=== PATIENT | female | born 1970 | race Caucasian/White ===

== ENCOUNTER 2025-07-15 10:15 | Emergency (ER) | payer OTHER, SELFPAY ==
--- NOTE | 2025-07-15 10:22 | ECG_ITS ---
Test Date: 2025-07-15 10:30:09 Measurements Intervals [place] Rate: 103 P: 69 SD: 155 QRS: 70 QRSD: 80 T: 73 QT: 330 QTc: 434 Interpretive Statements SINUS TACHYCARDIA NONSPECIFIC T-WAVE ABNORMALITY BORDERLINE ECG No previous ECG available for comparison Electronically Signed On 07-16-2025 09:12:38 [place] by Gaurav Arango M.D.
--- OUTSIDE RECORDS SUMMARY | 2025-07-15 10:22 | XMS_ITS | Encounter Summary ---
Author Organization [facility] Address [address] [place] [address] Phone Care Team Providers Care Safety Director Name Role Phone Steven Escudero MD Unavailable Felix Velasco [facility] Unavailable [phone] Steven Escudero MD Primary Care Provider [phone] Sebastián Anthony MD Primary Care Provider [phone] Reason for Visit * Reason Comments Medication Refill Encounter Details Date Type Department Care Team (Late st Contact Info) Description 02/12/2022 Refill [facility] Family Medicine [facility] [address] [place] [id number] Steven Escudero MD [address] [place] [address] Medication Refill Social History Tobacco Use Types Packs/Day Years Used Date Smoking Tobacco: Every Day Cigarettes 1.5 30 Smokeless Tobacco: Never Comments:used to smoke 2.5 p acks a day until ten years ago Alcohol Use Standard Drinks/Week Comments No 0 (1 standard drink = 0.6 oz pur e alcohol) PHQ-2 Answer Date Recorded Total Score - Questions 1-9 0 10/0 08/2020 Education Answer Date Recorded What is the highest level of school you have completed or the highest degree you have received? Associate degree: academic program 11/07/2020 Sexually Active Control Partners Comments Not Currently Comments No Sex and Gender Information Value Date Recorded Sex Assigned at Not on file Legal Sex Female 7:11 PM CDT Gender Identity Not on file Sexual Orientation Not on file Occupation Industry Job Start Date Job End Date Disabled Not on file Not on file Not on file COVID-19 Exposure Response Date Recorded In the last 10 days, have yo u been in contact with someone who was confirmed or suspected to have Coronavirus/COVID-19? No / Unsure 01/21/2022 2:27 PM CDT documented as of this encounter Miscellaneous Notes * Telephone Encounter - Miriam Richardson RN - 02/13/2022 11:52 AM CDT PRN medication requires review from provider Per nursing clinical judgement, provider to review and approve the medication(s) order(s) if appropriate. Requested Prescriptions Pending Prescriptions Disp Refills Ventolin HFA 108 (90 Base) MCG/ACT Aerosol Solution [Pharmacy Med Name: VENTOLIN HFA AEROSOL SOLN] 36 g 2 Sig: TAKE TWO (2) PUFFS BY INHALATION EVERY FOUR (4) HOURS NEEDED FOR WHEEZING. Short Acting Inhaled Beta-Agonists Protocol Passed - 02/12/2022 1:09 PM Passed - Visit with relevant provider in past 12 months or upcoming 90 days Recent Visits Date Type Provider Dept 12/03/21 Office Visit Steven Escudero MD [facility] 06/19/21 Office Visit Steven Escudero MD [facility] 05/17/21 Office Visit Steven Escudero MD [facility] 02/21/21 Office Visit Steven Escudero MD [facility] Showing recent visits within past 365 days and meeting all other requirements Future 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 Date Type Provider Dept 04/04/22 Appointment Steven Escudero MD [facility] Showing future appointments within next 90 days and meeting all other requirements documented in this encounter Plan of Treatment Not on file documented as of this encounter Visit Diagnoses Not on filedocumented in this encounter Additional Health Concerns Assessment Noted Time PHQ-9 Depression Total Score: 0 05/17/20 21 2:00 PM CDT documented as of this encounter Care Teams Safety Director Relationship Specialty Start Date End Date Steven Escudero MD PCP - General Family Medicine 11/19/21 04/15/22 Sebastián Anthony MD [address] [place] [address] PCP - General Internal Medicine 04/16/22 Steven Escudero MD Family Medicine 06/14/20 04/17/22 Felix Velasco, COLOR MAKER, DRAWER IN PLAIN LOOM [address] [address] Internal Medicine 06/19/20 documented as of this encounter
--- OUTSIDE RECORDS SUMMARY | 2025-07-15 10:22 | XMS_ITS | Encounter Summary ---
Author Organization [facility] Address [address] [place] [address] Phone Care Team Providers Care Geospatial Applications Developer Name Role Phone Steven Escudero MD Unavailable Steven Escudero MD Primary Care Provider [phone] Felix Velasco APRN, [facility] Unavailable [phone] Sebastián Anthony MD Primary Care Provider [phone] Steven Escudero MD Primary Care Provider [phone] Sebastián Anthony MD Primary Care Provider [phone] Reason for Visit * Reason Comments Medication Refill Encounter Details Date Type Department Care Team (Late st Contact Info) Description 10/09/[address] [facility] [address] [place] [address] Steven Escudero MD [address] [place] [address] Medication Refill Social History Tobacco Use Types Packs/Day Years Used Date Smoking Tobacco: Every Day Cigarettes 1 30 Smokeless Tobacco: Never Comments:used to smoke 2.5 p acks a day until ten years ago Alcohol Use Standard Drinks/Week Comments No 0 (1 standard drink = 0.6 oz pur e alcohol) PHQ-2 Answer Date Recorded Total Score - Questions 1-9 3 10/2019 Sexually Active Control Partners Comments Not Currently Comments No Sex and Gender Information Value Date Recorded Sex Assigned at Not on file Legal Sex Female 7:11 PM CDT Gender Identity Not on file Sexual Orientation Not on file Occupation Industry Job Start Date Job End Date Disabled Not on file Not on file Not on file documented as of this encounter Miscellaneous Notes * Telephone Encounter - Danita Mena RN - 10/10/2020 10:22 AM CST Medication failed the protocol, provider to review and approve the medication order if appropriate. Requested Prescriptions Pending Prescriptions Disp Refills risperiDONE (RISPERDAL) 0.5 MG Tablet [Pharmacy Med Name: RISPERIDONE 0.5 MG TAB 0.5 Tablet] 360 Tablet 0 Sig: TAKE ONE TABLET BY MOUTH 4 TIMES DAILY. Not Delegated - Psychiatry: Antipsychotics - Second Generation (Atypical) Failed - 10/10/2020 8:45 AM Failed - This refill cannot be delegated Failed - HBA1C in normal range and within 360 days No results found for: HGBA1C, GLYCO1 Passed - Valid encounter within last 6 months Past Office Visits Recent Outpatient Visits 1 month ago Mixed hyperlipidemia [facility] - Steven Jones MD 3 months ago Gastroesophageal reflux disease, unspecified whether esophagitis present [facility] - VinayakNo Luna, SALESPERSON HANDBAGS, EGG SMELLER 4 months ago Essential hypertension [facility] - Steven Jones MD 12 months ago Essential hypertension [facility] - Steven Jones MD 1 year ago Acute renal failure with tubular necrosis (HCC) [facility] Steven Faria MD 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 [facility] - Recent and Past Visits Recent Visits Date Type Provider Dept 08/27/20 [facility] [place] APN, EGG SMELLER [facility] 05/25/20 Office Visit Steven Escudero MD [facility] 10/13/19 Office Visit Steven Escudero MD [facility] 09/29/19 Office Visit Steven Escudero MD [facility] 08/25/19 Office Visit Steven Escudero MD [facility] 07/11/19 Office Visit Celso Prado APN, EGG SMELLER [facility] Showing recent visits within past 460 days with a meds authorizing provider and meeting all other requirements Future 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 No visits were found meeting these conditions. Showing future appointments within next 90 days with a meds authorizing provider and meeting all other requirements Passed - Last BP in normal range BP Readings from Last 1 Encounters: 06/19/20 132/74 Passed - WBC in normal range and within 360 days WBC Date Value Ref Range Status 08/20/2020 8.86 4.00 - 12.00 10(3)/mcL Final BUILDER documented in this encounter Plan of Treatment Not on file documented as of this encounter Visit Diagnoses Not on filedocumented in this encounter Additional Health Concerns Assessment Noted Time PHQ-9 Depression Total Score: 3 06/19/20 20 5:15 PM TOOL BUILDER documented as of this encounter Care Teams Geospatial Applications Developer Relationship Specialty Start Date End Date Stevne Escudero MD PCP - General Family Medicine 06/19/20 08/06/21 Sebastián Anthony MD [address] [place] [address] PCP - General Family Medicine 08/07/21 11/18/21 Steven Escudero MD PCP - General Family Medicine 11/19/21 04/15/22 Sebastián Anthony MD [address] [place] [address] PCP - General Internal Medicine 04/16/22 Steven Escudero MD Family Medicine 06/14/20 04/17/22 Felix Velasco, WARD CLERK, EGG SMELLER [address] [address] Internal Medicine 06/19/20 documented as of this encounter
--- OUTSIDE RECORDS SUMMARY | 2025-07-15 10:22 | XMS_ITS | Encounter Summary ---
Author Organization [facility] Address [address] [place] [address] Phone Care Team Providers Care Cna Instructor Name Role Phone Steven Escudero MD Unavailable Steven Escudero MD Primary Care Provider [phone] Felix Velasco APRN, [facility] Unavailable [phone] Sebastián Anthony MD Primary Care Provider [phone] Steven Escudero MD Primary Care Provider [phone] Sebastián Anthony MD Primary Care Provider [phone] Reason for Visit * Reason Comments Medication Refill Encounter Details Date Type Department Care Team (Late st Contact Info) Description 11/26/2020 Refill [facility] [address] [place] [address] Steven Escudero MD [address] [place] [address] Medication Refill Social History Tobacco Use Types Packs/Day Years Used Date Smoking Tobacco: Every Day Cigarettes 1 30 Smokeless Tobacco: Never Comments:used to smoke 2.5 p acks a day until ten years ago Alcohol Use Standard Drinks/Week Comments No 0 (1 standard drink = 0.6 oz pur e alcohol) PHQ-2 Answer Date Recorded Total Score - Questions 1-9 3 10/2019 Education Answer Date Recorded What is the [...] Exposure Response Date Recorded In the last month, have you been in contact with someone who was confirmed or suspected to have Coronavirus / COVID-19? No / Unsure 11/29/2020 5:49 PM CDT documented as of this encounter Miscellaneous Notes * Telephone Encounter - Danita Mena RN - 11/26/2020 4:23 PM CDT Medication failed the protocol, provider to review and approve the medication order if appropriate. Requested Prescriptions Pending Prescriptions Disp Refills Ventolin HFA 108 (90 Base) MCG/ACT Aerosol Solution [Pharmacy Med Name: VENTOLIN HFA 90 MCG [id number] (90 BAS Aerosol] 36 g 0 Sig: TAKE 2 PUFFS BY INHALATION EVERY 4 HOURS NEEDED FOR WHEEZING. Pulmonology: Beta Agonists - Albuterol & Levalbuterol Failed - 11/26/2020 3:22 PM Failed - May refill 2 inhalers, 0 refills one time since last office visit. May refill #50 nebulizer vials, 0 refills for albuterol or #48 vials, 0 refills for Xopenex one time since last office visit. Passed - Valid encounter within last 6 months Past Office Visits Recent Outpatient Visits 2 weeks ago Folliculitis [facility] - [facility] Medicine - [facility] Pr[facility], Celso Nolasco APN, BRITTANY 3 months ago Mixed hyperlipidemia [facility] - [facility] Medicine - Steven Jones MD 5 months ago Gastroesophageal reflux disease, unspecified whether esophagitis present [facility] - Family Medicine - No Marcelino APN, FORENSIC BALLISTICS EXPERT 6 months ago Essential hypertension [facility] - Steven Jones MD 1 year ago Essential hypertension [facility] - Steven Jones MD 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 Future 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 In 3 days Clinic, [facility] Moderna 1st Vaccine [facility], [facility] - Recent and Past Visits Recent Visits Date Type Provider Dept 11/07/20 Office Visit Celso Prado APN, FORENSIC BALLISTICS EXPERT [facility] 08/27/20 Telemedicine Steven Escudero MD [facility] 06/19/20 Office Visit No Spring APN, FORENSIC BALLISTICS EXPERT [facility] 05/25/20 Office Visit Steven Escudero MD [facility] 10/13/19 Office Visit Steven Escudero MD [facility] 09/29/19 Office Visit Steven Escudero MD [facility] 08/25/19 Office Visit Steven Escudero MD [facility] Showing recent visits within past 460 days with a meds authorizing provider and meeting all other requirements Future 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 No visits were found meeting these conditions. Showing future appointments within next 90 days with a meds authorizing provider and meeting all other requirements Passed - Last BP in normal range BP Readings from Last 1 Encounters: 11/13/20 128/85 documented in this encounter Plan of Treatment Not on file documented as of this encounter Visit Diagnoses Not on filedocumented in this encounter Additional Health Concerns Assessment Noted Time PHQ-9 Depression Total Score: 3 06/19/20 20 5:15 PM AGRICULTURAL LENDER documented as of this encounter Care Teams Cna Instructor Relationship Specialty Start Date End Date Steven Escudero MD PCP - General Family Medicine 06/19/20 08/06/21 Sebastián Anthony MD [address] [place] [address] PCP - General Family Medicine 08/07/21 11/18/21 Steven Escudero MD PCP - General Family Medicine 11/19/21 04/15/22 Sebastián Anthony MD [address] [place] [address] PCP - General Internal Medicine 04/16/22 Steven Escudero MD Family Medicine 06/14/20 04/17/22 Felix Velasco, CLERK ANALYST, FORENSIC BALLISTICS EXPERT [address] [place] [address] [place] [address] Internal Medicine 06/19/20 documented as of this encounter
--- OUTSIDE RECORDS SUMMARY | 2025-07-15 10:22 | XMS_ITS | Encounter Summary ---
Author Organization [facility] Address [address] [place] [address] Phone Care Team Providers Care Career Center Advisor Name Role Phone Robpippa Felix Esquivel APRN, LOGISTICS OPERATIONS MANAGER Unavailable [phone] Sebastián Anthony MD Primary Care Provider [phone] Reason for Visit * Reason Comments Medication Refill Encounter Details Date Type Department Care Team (Late st Contact Info) Description 10/16/2022 Refill [facility] [address] [place] [id number] Steven Escudero MD [address] [place] [address] Medication Refill Social History Tobacco Use Types [...] suspected to have Coronavirus/COVID-19? No / Unsure 09/27/2022 10:20 AM LEAD SYSTEMS DEVELOPER documented as of this encounter Plan of Treatment Not on file documented as of this encounter Visit Diagnoses Not on filedocumented in this encounter Additional Health Concerns Assessment Noted Time PHQ-9 Depression Total Score: 0 05/17/20 21 2:00 PM CDT documented as of this encounter Care Teams Career Center Advisor Relationship Specialty Start Date End Date Sebastián Anthony MD [address] [place] [address] PCP - General Internal Medicine 04/16/22 Felix Velasco, HEAD GRINDER, LOGISTICS OPERATIONS MANAGER [address] [place] [address] Internal Medicine 06/19/20 documented as of this encounter
--- OUTSIDE RECORDS SUMMARY | 2025-07-15 10:22 | XMS_ITS | Encounter Summary ---
Author Organization [facility] Address [address] [place] [address] Phone Care Team Providers Care Corporate Strategy Intern Name Role Phone Steven Escudero MD Unavailable Felix Velasco APRN, [facility] Unavailable Sebastián Anthony MD Primary Care Provider [phone] Steven Escudero MD Primary Care Provider [phone] Sebastián Anthony MD Primary Care Provider [phone] Reason for Visit * Reason Comments Medication Refill Encounter Details Date Type Department Care Team (Late st Contact Info) Description 08/20/2021 Refill [facility] [address] [place] [address] Steven Escudero MD [address] [place] [address] Medication Refill Social History Tobacco Use Types Packs/Day Years Used Date Smoking Tobacco: Every Day Cigarettes 1 30 Smokeless Tobacco: Never Comments:used to smoke 2.5 p acks a day until ten years ago Alcohol Use Standard Drinks/Week Comments No 0 (1 standard drink = 0.6 oz pur e alcohol) PHQ-2 Answer Date Recorded Total Score - Questions 1-9 0 08/2020 Education Answer Date Recorded What is [...] Telephone Encounter - Miriam Richardson RN - 08/21/2021 7:47 AM CST PCP is Sebastián Anthony NOMY SUPERVISOR documented in this encounter Plan of Treatment Not on file documented as of this encounter Visit Diagnoses Not on filedocumented in this encounter Additional Health Concerns Assessment Noted Time PHQ-9 Depression Total Score: 0 05/17/20 2:00 PM CDT documented as of this encounter Care Teams Corporate Strategy Intern Relationship Specialty Start Date End Date Sebastián Anthony MD [address] [place] [address] PCP - General Family Medicine 08/07/21 11/18/21 Steven Escudero MD PCP - General Family Medicine 11/19/21 04/15/22 Sebastián Anthony MD [address] [place] [address] PCP - General Internal Medicine 04/16/22 Steven Escudero MD Family Medicine 06/14/20 04/17/22 Felix Velasco, PROFESSIONAL HEALTHCARE REPRESENTATIVE, CERTIFIED PEDORTHOTIST [address] [place] [address] Internal Medicine 06/19/20 documented as of this encounter
--- OUTSIDE RECORDS SUMMARY | 2025-07-15 10:22 | XMS_ITS | Encounter Summary ---
Author Organization [facility] Address [address] [place] [address] Phone Care Team Providers Care Olericulture Professor Name Role Phone Steven Escudero MD Unavailable Steven Escudero MD Primary Care Provider [phone] Felix Velasco APRN, [facility] Unavailable [phone] Sebastián Anthony MD Primary Care Provider [phone] Steven Escudero MD Primary Care Provider [phone] Sebastián Anthony MD Primary Care Provider [phone] Reason for Visit * Reason Onset Date Comments Medication Refill 08/07/2020 diazepam, oxyc odone Encounter Details Date Type Department Care Team (Late st Contact Info) Description 08/07/2020 Refill [facility] - Family [facility] [address] [place] [id number] Steven Escudero MD [address] [place] [address] Medication Refill (diazepam, oxycodone ) Social History Tobacco Use Types Packs/Day Years [...] Telephone Encounter - Miriam Richardson RN - 08/07/2020 4:10 PM CST PACO 06/19/20 fol up 08/27/20 last fill 07/14/20 next fill 08/13/20 Medication failed the protocol, provider to review and approve the medication order if appropriate. Requested Prescriptions Pending Prescriptions Disp Refills diazePAM (VALIUM) 5 MG Tablet 120 Tab 0 Sig: Take 1 Tab by mouth every 6 hours as needed for Anxiety or Muscle spasms. FIRST FILL DATE 05/18/2020 need appt or no more refills Not Delegated - Psychiatry: Anxiolytics/Hypnotics Failed - 08/07/2020 4:09 PM Failed - This refill cannot be delegated Passed - Valid encounter within last 6 months Past Office Visits Recent Outpatient Visits 1 month ago Gastroesophageal reflux disease, unspecified whether esophagitis present [facility], SENIOR MANAGER [facility] 2 months ago Essential [facility] - Steven Jones MD 9 months ago Essential hypertension [facility] - Steven Jones MD 10 months ago Acute renal failure with tubular necrosis (HCC) [facility] - Steven Jones MD 11 months ago Essential hypertension [facility] - Steven Jones MD 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 Future 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 In 2 weeks Steven Escudero MD [facility] CLERICAL ASSISTANT - Recent and Past Visits Recent Visits Date Type Provider Dept 06/19/20 Office Visit No Spring APN, [facility] 05/25/20 Office Visit Steven Escudero MD [facility] 10/13/19 Office Visit Steven Escudero MD [facility] 09/29/19 Office Visit Steven Escudero MD [facility] 08/25/19 Office Visit Steven Escudero MD [facility] 07/11/19 Office Visit Celso Prado APN, SENIOR MANAGER [facility] Vinayak 06/01/19 Office Visit Steven Escudero MD [facility] Showing recent visits within past 460 days with a meds authorizing provider and meeting all other requirements Future 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 Date Type Provider Dept 08/27/20 Appointment Steven Escudero MD [facility] Showing future appointments within next 90 days with a meds authorizing provider and meeting all other requirements oxyCODONE-Acetaminophen (PERCOCET) 10-325 MG Tablet 180 Tab 0 Sig: Take 1 Tab by mouth every 4 hours as needed for Moderate or more severe pain. Needs appt or nofurther refills. Not Delegated - Analgesics: Opioid Agonist Combinations Failed - 08/07/2020 4:09 PM Failed - This refill cannot be delegated Passed - Valid encounter within last 6 months Past Office Visits Recent Outpatient Visits 1 month ago Gastroesophageal reflux disease, unspecified whether esophagitis present [facility], SENIOR MANAGER [facility] 2 months ago Essential hypertension [facility] Steven Jones MD 9 months ago Essential hypertension [facility] Steven Jones MD 10 months ago Acute renal failure with tubular necrosis (HCC) [facility] Steven Jones MD 11 months ago Essential hypertension [facility] Steven Jones MD 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 Future 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 In 2 weeks Steven Escudero MD [facility] Vinayak, [facility] LIBRARY CLERICAL ASSISTANT - Recent and Past Visits Recent Visits Date Type Provider Dept 06/19/20 Office Visit No Spring APN, SENIOR MANAGER [facility] 05/25/20 Office Visit Steven Escudero, MD [facility] 10/13/19 Office Visit Steven Escudero, MD [facility] 09/29/19 Office Visit Steven Escudero, MD [facility] 08/25/19 Office Visit Steven Escudero, MD [facility] 07/11/19 Office Visit Celso Prado APN, SENIOR MANAGER [facility] 06/01/19 Office Visit Steven Escudero, MD [facility] Showing recent visits within past 460 days with a meds authorizing provider and meeting all other requirements Future 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 Date Type Provider Dept 08/27/20 Appointment Steven Escudero MD [facility] Showing future appointments within next 90 days with a meds authorizing provider and meeting all other requirements DREN'S INSTITUTION ATTENDANT * Telephone Encounter - Danielle Rivera - 08/07/2020 12:39 PM CST Received: []FAX [x]TELEPHONE CALL []MYCHART from: []PHARMACY [x]PATIENT/OTHER regarding medication management. Medication name and dose: Requested Prescriptions Pending Prescriptions Disp Refills ??? diazePAM (VALIUM) 5 MG Tablet 120 Tab 0 Sig: Take 1 Tab by mouth every 6 hours as needed for Anxiety or Muscle spasms. FIRST FILL DATE 05/18/2020 need appt or no more refills ??? oxyCODONE-Acetaminophen (PERCOCET) 10-325 MG Tablet 180 Tab 0 Sig: Take 1 Tab by mouth every 4 hours as needed for Moderate or more severe pain. Needs appt or nofurther refills. Quantity: (30 day, 90 day, 3 monthly scripts) 30 day Pharmacy preference for this medication: [facility] [place] Outcome: [x]Medication pended, routed to surescripts []Medication refused []Informed caller of refills at pharmacy []Additional message to medication management RN []Verbal authorization for written order to pharmacy []Additional message to provider []Verified medication with pharmacy magdy Medication Management DREN'S INSTITUTION ATTENDANT documented in this encounter Plan of Treatment Not on file documented as of this encounter Visit Diagnoses Diagnosis Chronic bilateral low back pain with sciatica, sciatica laterality unspecified Chronic prescription opiate use documented in this encounter Additional Health Concerns Assessment Noted Time PHQ-9 Depression Total Score: 3 06/19/20 20 5:15 PM CHILDREN'S INSTITUTION ATTENDANT documented as of this encounter Care Teams Olericulture Professor Relationship Specialty Start Date End Date Steven Escudero MD PCP - General Family Medicine 06/19/20 08/06/21 Sebastián Anthony MD [address] [place] [address] PCP - General Family Medicine 08/07/21 11/18/21 Steven Escudero MD PCP - General Family Medicine 11/19/21 04/15/22 Sebastián Anthony MD [address] [place] [address] PCP - General Internal Medicine 04/16/22 Steven Escudero MD Family Medicine 06/14/20 04/17/22 Felix Velasco, LABORATORY MACHINIST, SENIOR MANAGER [facility] [address] [place] [address] [place] [address] Internal Medicine 06/19/20 documented as of this encounter
--- OUTSIDE RECORDS SUMMARY | 2025-07-15 10:22 | XMS_ITS | Encounter Summary ---
Author Organization [facility] Address [address] [place] [address] Phone Care Team Providers Care Bundler Name Role Phone Steven Escudero MD Unavailable Steven Escudero MD Primary Care Provider [phone] Felix Velasco APRN, [facility] Unavailable [phone] Sebastián Anthony MD Primary Care Provider [phone] Steven Escudero MD Primary Care Provider [phone] Sebastián Anthony MD Primary Care Provider [phone] Reason for Visit * Reason Comments Medication Refill Encounter Details Date Type Department Care Team (Late st Contact Info) Description 01/07/2021 Refill [facility] [address] [place] [address] Steven Escudero MD [address] [place] [address] Medication Refill Social History Tobacco Use Types [...] have Coronavirus / COVID-19? No / Unsure 01/09/2021 2:13 PM CDT documented as of this encounter Miscellaneous Notes * Telephone Encounter - Miriam Richardson RN - 01/08/2021 9:30 AM CDT Medication failed the protocol, provider to review and approve the medication order if appropriate. Requested Prescriptions Pending Prescriptions Disp Refills clopidogrel (PLAVIX) 75 MG Tablet [Pharmacy Med Name: CLOPIDOGREL 75 MG TABLET 75 Tablet] 90 Tablet3 Sig: TAKE 1 TAB BY MOUTH DAILY. Plavix Protocol Passed - 01/07/2021 1:34 PM Passed - CBC on record in the past year WBC Date Value Ref Range Status 08/20/2020 8.86 4.00 - 12.00 10(3)/mcL Final WBC ESTERASE Date Value Ref Range Status 2020 Negative Negative Final RBC Date Value Ref Range Status 08/20/2020 4.54 3.80 - 5.30 10(6)/mcL Final HEMATOCRIT (HCT) Date Value Ref Range Status 08/20/2020 45.2 36.0 - 47.0 % Final HEMOGLOBIN (HGB) Date Value Ref Range Status 08/20/2020 14.4 12.0 - 15.8 g/dL Final MCV Date Value Ref Range Status 08/20/2020 99.6 (H) 82.0 - 96.0 fL Final MCH Date Value Ref Range Status 08/20/2020 31.7 26.0 - 34.0 pg Final MCHC Date Value Ref Range Status 08/20/2020 31.9 31.0 - 36.0 g/dL Final Passed - Serum creatinine on record in the past year CREATININE, BLOOD Date Value Ref Range Status 08/20/2020 0.87 0.60 - 1.10 mg/dL Final Passed - Visit with relevant provider in past 12 months or upcoming 90 days Recent Visits Date Type Provider Dept 11/07/20 Office Visit Celso Prado APN, BRITTANY [facility] 08/27/20 Telemedicine Steven Escudero MD [facility] 06/19/20 Office Visit No Spring APN, CNP [facility] Vin[facility] 05/25/20 Office Visit Steven Escudero MD [facility] Showing recent visits within past 365 days and meeting all other requirements Future 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 No visits were found meeting these conditions. Showing future appointments within next 90 days and meeting all other requirements Passed - No interacting PPI on medication list or not on PPI Ventolin HFA 108 (90 Base) MCG/ACT Aerosol Solution [Pharmacy Med Name: VENTOLIN HFA 90 MCG [id number] (90 BAS Aerosol] 36 g 0 Sig: TAKE 2 PUFFS BY INHALATION EVERY 4 HOURS NEEDED FOR WHEEZING. [facility] Pulmonology: Beta Agonists - Albuterol & Levalbuterol Failed - 01/07/2021 1:34 PM Failed - May refill 2 inhalers, 0 refills one time since last office visit. May refill #50 nebulizer vials, 0 refills for albuterol or #48 vials, 0 refills for Xopenex one time since last office visit. Passed - Valid encounter within last 6 months Past Office Visits Recent Outpatient Visits 2 months ago Folliculitis [facility] - Celso May APN, CNP 4 months ago Mixed hyperlipidemia [facility] - Steven Jones MD 6 months ago Gastroesophageal reflux disease, unspecified whether esophagitis present [facility] - No Marcelino APN, CNP 7 months ago [facility] Jones [facility] 1 year ago Essential hypertension [facility] - Steven Jones MD 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 ACT 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 - Recent and Past Visits Recent Visits Date Type Provider Dept 11/07/20 Office Visit Celso Prado APN, BRITT[facility] 08/27/20 Telemedicine Steven Escudero MD [facility] 06/19/20 Office Visit No Spring APN, [facility] [place] 05/25/20 Office Visit Steven Escudero MD [facility] 10/13/19 Office Visit Steven Escudero MD [facility] Showing recent visits within past 460 days with a meds authorizing provider and meeting all other requirements Future 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 No visits were found meeting these conditions. Showing future appointments within next 90 days with a meds authorizing provider and meeting all other requirements Passed - Last BP in normal range BP Readings from Last 1 Encounters: 11/13/20 128/85 risperiDONE (RISPERDAL) 0.5 MG Tablet [Pharmacy Med Name: RISPERIDONE 0.5 MG TAB 0.5 Tablet] 360 Tablet 1 Sig: TAKE ONE TABLET BY MOUTH 4 TIMES DAILY. [facility] Not Delegated - Psychiatry: Antipsychotics - Second Generation (Atypical) Failed - 01/07/2021 1:34 PM Failed - This refill cannot be delegated Failed - HBA1C in normal range and within 360 days No results found for: HGBA1C, GLYCO1 Passed - Valid encounter within last 6 months Past Office Visits Recent Outpatient Visits 2 months ago Folliculitis [facility] - Celso May APN, CNP 4 months ago Mixed hyperlipidemia [facility] - Steven Jones MD 6 months ago Gastroesophageal reflux disease, unspecified whether esophagitis present [facility] - No Marcelino APN, CNP 7 months ago Essential hypertension [facility] - Steven Jones MD 1 year ago Essential hypertension [facility] - Steven Jones MD 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 SAT ACT INSTRUCTOR - Recent and Past Visits Recent Visits Date Type Provider Dept 11/07/20 Office Visit Celso Prado APN, BRITTANY [facility] 08/27/20 Telemedicine Steven Escudero MD [facility] 06/19/20 Office Visit No Spring APN, BRITTANY [facility] 05/25/20 Office Visit Steven Escudero MD [facility] 10/13/19 Office Visit Steven Escudero MD [facility] Showing recent visits within past 460 days with a meds authorizing provider and meeting all other requirements Future 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 No visits were found meeting these conditions. Showing future appointments within next 90 days with a meds authorizing provider and meeting all other requirements Passed - Last BP in normal range BP Readings from Last 1 Encounters: 11/13/20 128/85 Passed - WBC in normal range and within 360 days WBC Date Value Ref Range Status 08/20/2020 8.86 4.00 - 12.00 10(3)/mcL Final carvedilol (COREG) 6.25 MG Tablet [Pharmacy Med Name: CARVEDILOL 6.25 MG TAB 6.25 Tablet] 180 Tablet 3 Sig: TAKE 1 TABLET BY MOUTH 2 TIMES DAILY. Beta-Blockers Protocol Passed - 01/07/2021 1:34 PM Passed - BP on record in the past year Clinician-entered: BP Readings from Last 3 Encounters: 11/13/20 128/85 11/07/20 124/60 06/19/20 132/74 Patient-entered: No data recorded Passed - Visit with relevant provider in past 12 months or upcoming 90 days Recent Visits Date Type Provider Dept 11/07/20 Office Visit Celso Prado APN, BRITTANY [facility] 08/27/20 Telemedicine Steven Escudero MD [facility] 06/19/20 Office Visit No Spring APN, CNP [facility] 05/25/20 Office Visit Steven Escudero MD [facility] Showing recent visits within past 365 days and meeting all other requirements Future 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 No visits were found meeting these conditions. Showing future appointments within next 90 days and meeting all other requirements amLODIPine (NORVASC) 10 MG Tablet [Pharmacy Med Name: AMLODIPINE BESYLATE 10 MG T 10 Tablet] 90 Tablet 3 Sig: TAKE 1 TABLET BY MOUTH DAILY. Calcium-Channel Blockers Protocol Passed - 01/07/2021 1:34 PM Passed - BP on record in the past year Clinician-entered: BP Readings from Last 3 Encounters: 11/13/20 128/85 11/07/20 124/60 06/19/20 132/74 Patient-entered: No data recorded Passed - Visit with relevant provider in past 12 months or upcoming 90 days Recent Visits Date Type Provider Dept 11/07/20 Office Visit Celso Prado APN, MANAGER OF CARE [facility] 08/27/20 Telemedicine Steven Escudero MD [facility] 06/19/20 Office Visit No Spring APN, MANAGER [facility] [place] 05/25/20 [facility] Show[facility] recent visits within past 365 days [...] Time PHQ-9 Depression Total Score: 3 06/19/20 5:15 PM BROADCAST PRODUCER documented as of this encounter Care Teams Bundler Relationship Specialty Start Date End Date Steven Escudero MD PCP - General Family Medicine 06/19/20 08/06/21 Sebastián [place] [address] PCP - General Family Medicine 08/07/21 11/18/21 Steven Escudero MD PCP - General Family Medicine 11/19/21 04/15/22 Sebastián Anthony MD [address] [place] [address] PCP - General Internal Medicine 04/16/22 Steven Escudero MD Family Medicine 06/14/20 04/17/22 Felix Velasco, MANUSCRIPTS ARCHIVIST, MANAGER OF CARE [address] [facility] [address] [place] [address] Internal Medicine 06/19/20 documented as of this encounter
--- OUTSIDE RECORDS SUMMARY | 2025-07-15 10:22 | XMS_ITS | Encounter Summary ---
Author Organization [facility] Address [address] [place] [address] Phone Care Team Providers Care Student Truck Driver Name Role Phone Steven Escudero MD Unavailable Steven Escudero MD Primary Care Provider [phone] Felix Velasco APRN, [facility] Unavailable Sebastián Anthony MD Primary Care Provider [phone] Steven Escudero MD Primary Care Provider [phone] Sebastián Anthony MD Primary Care Provider Reason for Visit * Reason Comments Medication Refill Encounter Details Date Type Department Care Team (Late st Contact Info) Description 09/11/2020 Refill [facility] [address] [place] [address] Steven Escudero MD [address] [place] [address] Medication Refill Social History Tobacco Use Types [...] have Coronavirus / COVID-19? No / Unsure 08/20/2020 9:08 AM PHYSICAL THERAPY SUPERVISOR documented as of this encounter Miscellaneous Notes * Telephone Encounter - Miriam Richardson RN - 09/12/2020 10:29 AM CST duplicate ICAL THERAPY SUPERVISOR documented in this encounter Plan of Treatment Not on file documented as of this encounter Visit Diagnoses Diagnosis Chronic bilateral low back pain with sciatica, sciatica laterality unspecified documented in this encounter Additional Health Concerns Assessment Noted Time PHQ-9 Depression Total Score: 3 06/19/20 20 5:15 PM PHYSICAL THERAPY SUPERVISOR documented as of this encounter Care Teams Student Truck Driver Relationship Specialty Start Date End Date Steven Escudero MD PCP - General Family Medicine 06/19/20 08/06/21 Sebast[place]án [place] [address] PCP - General Family Medicine 08/07/21 11/18/21 Steven Escudero MD PCP - General Family Medicine 11/19/21 04/15/22 Sebastián Anthony MD [address] [place] [address] PCP - General Internal Medicine 04/16/22 Steven Escudero MD Family Medicine 06/14/20 04/17/22 Felix Velasco, TELEVISION ANNOUNCER, RELATIONS MGR [address] [facility] [place] [place] [address] Internal Medicine 06/19/20 documented as of this encounter
--- OUTSIDE RECORDS SUMMARY | 2025-07-15 10:22 | XMS_ITS | Encounter Summary ---
Author Organization [facility] Address [address] [place] [address] Phone Care Team Providers Care Director Of Annual Giving Name Role Phone Steven Escudero MD Unavailable Steven Escudero MD Primary Care Provider [phone] Felix Velasco APRN, [facility] Unavailable [phone] Sebastián Anthony MD Primary Care Provider [phone] Steven Escudero MD Primary Care Provider [phone] Sebastián Anthony MD Primary Care Provider [phone] Reason for Visit * Reason Comments Medication Refill Encounter Details Date Type Department Care Team (Late st Contact Info) Description 09/27/2020 Refill [facility] [address] [place] [address] Steven Escudero MD [address] [place] [address] Medication Refill Social History Tobacco Use Types [...] encounter Miscellaneous Notes * Telephone Encounter - Irma Levin RN - 09/27/2020 11:55 AM CST Sent to PCP NEY SUPERVISOR BRICK * Telephone Encounter - Irma Levin RN - 09/27/2020 11:55 AM CST Medication failed the protocol, provider to review and approve the medication order if appropriate. Last OV 08/27/20, F/U None, Last Rx 08/07/20 Irma KIMBALL Requested Prescriptions Pending Prescriptions Disp Refills Ventolin HFA 108 (90 Base) MCG/ACT Aerosol Solution [Pharmacy Med Name: VENTOLIN HFA 90 MCG [id number] (90 BAS Aerosol] 36 g 0 Sig: TAKE 2 PUFFS BY INHALATION EVERY 4 HOURS NEEDED FOR WHEEZING. Pulmonology: Beta Agonists - Albuterol & Levalbuterol Failed - 09/27/2020 11:37 AM Failed - May refill 2 inhalers, 0 refills one time since last office visit. May refill #50 nebulizer vials, 0 refills for albuterol or #48 vials, 0 refills for Xopenex one time since last office visit. Passed - Valid encounter within last 6 months Past Office Visits Recent Outpatient Visits 1 month ago Mixed hyperlipidemia [facility] - Steven Jones MD 3 months ago Gastroesophageal reflux disease, unspecified whether esophagitis present [facility] - No Marcelino APN, BLACK TOP SPREADER MACHINE OPERATOR 4 months ago Essential hypertension [facility] - Steven Jones MD 11 months ago Essential hypertension [facility] - Steven Jones MD 12 months ago Acute renal failure with tubular necrosis (HCC) [facility] - Steven Jones MD 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 - Recent and Past Visits Recent Visits Date Type Provider Dept 08/27/20 Telemedicine Steven Escudero MD [facility] 06/19/20 Office Visit No Spring APN, BLACK TOP SPREADER MACHINE OPERATOR [facility] 05/25/20 Office Visit Steven Escudero MD [facility] 10/13/19 Office Visit Steven Escudero MD [facility] 09/29/19 Office Visit Steven Escudero MD [facility] 08/25/19 Office Visit Steven Escudero MD [facility] 07/11/19 Office Visit Celso Prado APN, BLACK TOP SPREADER MACHINE OPERATOR [facility] Showing recent visits within past 460 days with a meds authorizing provider and meeting all other requirements Future 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 No visits were found meeting these conditions. Showing future appointments within next 90 days with a meds authorizing provider and meeting all other requirements Passed - Last BP in normal range BP Readings from Last 1 Encounters: 06/19/20 132/74 NEY SUPERVISOR BRICK documented in this encounter Plan of Treatment Not on file documented as of this encounter Visit Diagnoses Not on filedocumented in this encounter Additional Health Concerns Assessment Noted Time PHQ-9 Depression Total Score: 3 06/19/20 20 5:15 PM CHIMNEY SUPERVISOR BRICK documented as of this encounter Care Teams Director Of Annual Giving Relationship Specialty Start Date End Date Steven Escudero MD PCP - General Family Medicine 06/19/20 08/06/21 Sebast[place]án [place] [address] PCP - General Family Medicine 08/07/21 11/18/21 Steven Escudero MD PCP - General Family Medicine 11/19/21 04/15/22 Sebastián Anthony MD [address] [place] [address] PCP - General Internal Medicine 04/16/22 Steven Escudero MD Family Medicine 06/14/20 04/17/22 Felix Velasco, EXECUTIVE SEARCH CONSULTANT, BLACK TOP SPREADER MACHINE OPERATOR [address] [place] [address] [place] [address] Internal Medicine 06/19/20 documented as of this encounter
--- OUTSIDE RECORDS SUMMARY | 2025-07-15 10:22 | XMS_ITS | Encounter Summary ---
Author Organization [facility] Address [address] [place] [address] Phone Care Team Providers Care Plant Taxonomist Name Role Phone Steven Escudero MD Unavailable Steven Escudero MD Primary Care Provider [phone] Felix Velasco APRN, [facility] Unavailable [phone] Sebastián Anthony MD Primary Care Provider [phone] Steven Escudero MD Primary Care Provider [phone] Sebastián Anthony MD Primary Care Provider [phone] Reason for Visit * Reason Comments Medication Refill Encounter Details Date Type Department Care Team (Late st Contact Info) Description 10/20/2020 Refill [facility] [address] [place] [address] Steven Escudero MD [address] [place] [address] Medication Refill Social History Tobacco Use Types [...] Telephone Encounter - Miriam Richardson RN - 10/22/2020 11:15 AM CST Medication failed the protocol, provider to review and approve the medication order if appropriate. Requested Prescriptions Pending Prescriptions Disp Refills busPIRone HCl (BUSPAR) 30 MG Tablet [Pharmacy Med Name: BUSPIRONE HCL 30 MG TABS 30 Tablet] 90 Tablet 1 Sig: TAKE 1/2 TABLET BY MOUTH 2 TIMES DAILY. Not Delegated - Psychiatry: Anxiolytics/Hypnotics Failed - 10/20/2020 2:12 PM Failed - This refill cannot be delegated Passed - Valid encounter within last 6 months Past Office Visits Recent Outpatient Visits 1 month ago Mixed hyperlipidemia [facility] Medical [facility] Family [facility] - Steven Jones MD 4 months ago Gastroesophageal reflux disease, unspecified whether esophagitis present [facility] - McdonaldNo Luna APN, PLANT TAXONOMIST 5 months ago Essential hypertension [facility] - Steven Jones MD 1 year ago Essential hypertension [facility] - Steven Jones MD 1 year ago Acute renal failure with tubular necrosis (HCC) [facility] Steven Faria MD 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 - 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 and Past Visits Recent Visits Date Type Provider Dept 08/27/20 Telemedicine Steven Escudero MD [facility] Kev 06/19/20 Office Visit No Spring APN, PLANT TAXONOMIST [facility] 05/25/20 Office Visit Steven Escudero MD [facility] 10/13/19 Office Visit Steven Escudero MD [facility] 09/29/19 Office Visit Steven Escudero MD [facility] 08/25/19 Office Visit Steven Escudero MD [facility] Showing recent visits within past 460 days with a meds authorizing provider and meeting all other requirements Future 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 No visits were found meeting these conditions. Showing future appointments within next 90 days with a meds authorizing provider and meeting all other requirements VIORAL ASSISTANT documented in this encounter Plan of Treatment Not on file documented as of this encounter Visit Diagnoses Not on filedocumented in this encounter Additional Health Concerns Assessment Noted Time PHQ-9 Depression Total Score: 3 06/19/20 5:15 PM BEHAVIORAL ASSISTANT documented as of this encounter Care Teams Plant Taxonomist Relationship Specialty Start Date End Date Steven Escudero MD PCP - General Family Medicine 06/19/20 08/06/21 Sebastián Anthony MD [address] [place] [address] PCP - General Family Medicine 08/07/21 11/18/21 Steven Escudero MD PCP - General Family Medicine 11/19/21 04/15/22 Sebastián Anthony MD [address] [place] [address] PCP - General Internal Medicine 04/16/22 Steven Escudero MD Family Medicine 06/14/20 04/17/22 Felix Velasco APRN, PLANT TAXONOMIST [address] [facility] [address] [place] [address] Internal Medicine 06/19/20 documented as of this encounter
--- OUTSIDE RECORDS SUMMARY | 2025-07-15 10:22 | XMS_ITS | Encounter Summary ---
Author Organization [facility] Address [address] [place] [address] Phone Care Team Providers Care Microsoft Developer Name Role Phone Steven Escudero MD Unavailable Felix Velasco [facility] Unavailable [phone] Steven Escudero MD Primary Care Provider [phone] Sebastián Anthony MD Primary Care Provider [phone] Reason for Visit * Reason Comments Medication Refill Encounter Details Date Type Department Care Team (Late st Contact Info) Description 11/28/2021 Refill [facility] [address] [place] [id number] Steven Escudero MD [address] [place] [address] Medication Refill Social History Tobacco Use Types [...] suspected to have Coronavirus/COVID-19? No / Unsure 11/30/2021 3:24 PM CDT documented as of this encounter Functional Status documented as of this encounter Mental Status * Question Answer Entry Date Author BP 108/68 11/30/2021 3:35 PM CDT Lora Mitchell, RTR Temp 97.9 11/30/2021 3:35 PM CDT Lora Mitchell, RTR Pulse 76 11/30/2021 3:35 PM CDT Lora Mitchell, RTR SpO2 98 11/30/2021 3:35 PM CDT Lora Mitchell, RTR documented in this encounter Miscellaneous Notes * Telephone Encounter - Miriam Richardson RN - 11/28/2021 3:11 PM CDT Medication failed the protocol, provider to review and approve the medication order if appropriate. Requested Prescriptions Pending Prescriptions Disp Refills Icosapent Ethyl (Vascepa) 1 g Capsule 360 Capsule 3 Sig: Take 2 Capsules by mouth 2 times daily. Not Delegated - Off Protocol Failed - 11/28/2021 1:18 PM Failed - This refill cannot be delegated Passed - Visit with relevant provider in past 12 months or upcoming 90 days Recent Visits Date Type Provider Dept 06/19/21 Office Visit Steven Escudero MD [facility] 05/17/21 Office Visit Steven Escudero MD [facility] 02/21/21 Office Visit Steven Escudero MD [facility] 01/15/21 Office Visit Steven Escudero MD [facility] Showing recent visits within past 365 days and meeting all other requirements Future 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 Date Type Provider Dept 12/03/21 Appointment Steven Escudero MD [facility] Showing future appointments within next 90 days and meeting all other requirements carvedilol (COREG) 6.25 MG Tablet [Pharmacy Med Name: CARVEDILOL 6.25MG TABLET] 180 Tablet 3 Sig: TAKE ONE (1) TABLET BY MOUTH TWO (2) TIMES DAILY. Beta-Blockers Protocol Passed - 11/28/2021 1:19 PM Passed - BP on record in the past year Clinician-entered: BP Readings from Last 3 Encounters: 11/14/21 126/82 09/01/21 128/82 06/19/21 138/84 Patient-entered: No data recorded Passed - Visit with relevant provider in past 12 months or upcoming 90 days Recent Visits Date Type Provider Dept 06/19/21 Office Visit Steven Escudero MD [facility] 05/17/21 Office Visit Steven Escudero MD [facility] 02/21/21 Office Visit Steven Escudero MD [facility] 01/15/21 Office Visit Steven Escudero MD [facility] Showing recent visits within past 365 days and meeting all other requirements Future 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 Date Type Provider Dept 12/03/21 Appointment Steven Escudero MD [facility] Showing future appointments within next 90 days and meeting all other requirements clopidogrel (PLAVIX) 75 MG Tablet [Pharmacy Med Name: CLOPIDOGREL 75MG TABLET] 90 Tablet 3 Sig: TAKE ONE (1) TAB BY MOUTH DAILY. Plavix Protocol Passed - 11/28/2021 1:19 PM Passed - CBC on record in past 12 months WBC Date Value Ref Range Status 05/17/2021 7.95 4.00 - 12.00 10(3)/mcL Final WBC ESTERASE Date Value Ref Range Status 2020 Negative Negative Final RBC Date Value Ref Range Status 05/17/2021 4.10 3.80 - 5.30 10(6)/mcL Final HEMATOCRIT (HCT) Date Value Ref Range Status 05/17/2021 41.3 36.0 - 47.0 % Final HEMOGLOBIN (HGB) Date Value Ref Range Status 05/17/2021 13.2 12.0 - 15.8 g/dL Final MCV Date Value Ref Range Status 05/17/2021 100.7 (H) 82.0 - 96.0 fL Final MCH Date Value Ref Range Status 05/17/2021 32.2 26.0 - 34.0 pg Final MCHC Date Value Ref Range Status 05/17/2021 32.0 31.0 - 36.0 g/dL Final Passed - Visit with relevant provider in past 12 months or upcoming 90 days Recent Visits Date Type Provider Dept 06/19/21 Office Visit Steven Escudero MD [facility] 05/17/21 Office Visit Steven Escudero MD [facility] 02/21/21 Office Visit Steven Escudero MD [facility] 01/15/21 Office Visit Steven Escudero MD [facility] Showing recent visits within past 365 days and meeting all other requirements Future 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 Date Type Provider Dept 12/03/21 Appointment Steven Escudero MD [facility] Showing future appointments within next 90 days and meeting all other requirements documented in this encounter Plan of Treatment Not on file documented as of this encounter Visit Diagnoses Diagnosis Mixed hyperlipidemia documented in this encounter Additional Health Concerns Assessment Noted Time PHQ-9 Depression Total Score: 0 05/17/20 2:00 PM CDT documented as of this encounter Care Teams Microsoft Developer Relationship Specialty Start Date End Date Steven Escudero MD PCP - General Family Medicine 11/19/21 04/15/22 Sebastián Anthony MD [address] [place] [address] PCP - General Internal Medicine 04/16/22 Steven Escudero MD Family Medicine 06/14/20 04/17/22 Felix Velasco, CHIEF SUSTAINABILITY OFFICER, TONG SETTER [address] [facility] [place] [address] Internal Medicine 06/19/20 documented as of this encounter
--- OUTSIDE RECORDS SUMMARY | 2025-07-15 10:22 | XMS_ITS | Encounter Summary ---
Author Organization [facility] Address [address] [place] [address] Phone Care Team Providers Care Pinking Sewing Machine Operator Name Role Phone Steven Escudero MD Unavailable Steven Escudero MD Primary Care Provider [phone] Felix Velasco APRN, [facility] Unavailable [phone] Sebastián Anthony MD Primary Care Provider [phone] Steven Escudero MD Primary Care Provider [phone] Sebastián Anthony MD Primary Care Provider [phone] Reason for Visit * Reason Comments Medication Refill Encounter Details Date Type Department Care Team (Late st Contact Info) Description 09/12/2020 [facility]ill [facility] [address] [place] [address] Steven Escudero MD [address] [place] [address] Medication Refill Social History Tobacco Use Types [...] COVID-19? No / Unsure 08/20/2020 9:08 AM ACUTE DIALYSIS REGISTERED NURSE documented as of this encounter Miscellaneous Notes * Telephone Encounter - Miriam Richardson RN - 09/12/2020 11:05 AM CST duplicate E DIALYSIS REGISTERED NURSE documented in this encounter Plan of Treatment Not on file documented as of this encounter Visit Diagnoses Diagnosis Chronic bilateral low back pain with sciatica, sciatica laterality unspecified Chronic prescription opiate use documented in this encounter Additional Health Concerns Assessment Noted Time PHQ-9 Depression Total Score: 3 06/19/20 20 5:15 PM ACUTE DIALYSIS REGISTERED NURSE documented as of this encounter Care Teams Pinking Sewing Machine Operator Relationship Specialty Start Date End Date Steven Escudero MD PCP - General Family Medicine 06/19/20 08/06/21 Sebastián [place] [address] PCP - General Family Medicine 08/07/21 11/18/21 Steven Escudero MD PCP - General Family Medicine 11/19/21 04/15/22 Sebastián Anthony MD [address] [place] [address] PCP - General Internal Medicine 04/16/22 Steven Escudero MD Family Medicine 06/14/20 04/17/22 Felix Velasco, ONLINE FACILITATOR, LENS COATING TECHNICIAN [address] [facility] [place] [address] Internal Medicine 06/19/20 documented as of this encounter
--- OUTSIDE RECORDS SUMMARY | 2025-07-15 10:22 | XMS_ITS | Encounter Summary ---
Author Organization [facility] Address [address] [place] [address] Phone Care Team Providers Care Brewery Worker Name Role Phone Robpippa Felix Esquivel APRN, COMPENSATION INTERN Unavailable [phone] Sebastián Anthony MD Primary Care Provider [phone] Reason for Visit * Reason Comments Medication Refill Encounter Details Date Type Department Care Team (Late st Contact Info) Description 12/18/2022 Refill [facility] Family Medicine [facility] [address] [place] [phone] Steven Escudero MD [address] [place] [address] Medication Refill Social History Tobacco Use Types [...] on file documented as of this encounter Plan of Treatment Not on file documented as of this encounter Visit Diagnoses Not on filedocumented in this encounter Additional Health Concerns Assessment Noted Time PHQ-9 Depression Total Score: 0 05/17/20 21 2:00 PM CDT documented as of this encounter Care Teams Brewery Worker Relationship Specialty Start Date End Date Sebastián Anthony MD [address] [place] [address] PCP - General Internal Medicine 04/16/22 Felix Velasco, LICENSED MIDWIFE, COMPENSATION INTERN [address] [place] [address] [address] [place] [address] Internal Medicine 06/19/20 documented as of this encounter
--- OUTSIDE RECORDS SUMMARY | 2025-07-15 10:22 | XMS_ITS | Encounter Summary ---
Author Organization [facility] Address [address] [place] [address] Phone Care Team Providers Care Recreation Program Specialist Name Role Phone Steven Escudero MD Unavailable Steven Escudero MD Primary Care Provider [phone] Felix Velasco APRN, [facility] Unavailable Sebastián Anthony MD Primary Care Provider [phone] Steven Escudero MD Primary Care Provider [phone] Sebastián Anthony MD Primary Care Provider [phone] Reason for Visit * Reason Comments Medication Refill Encounter Details Date Type Department Care Team (Late st Contact Info) Description 11/07/2020 Refill [facility] Family [facility] [address] [place] [address] Steven Escudero MD [address] [place] [address] Medication Refill Social History Tobacco Use Types [...] have Coronavirus / COVID-19? No / Unsure 11/07/2020 11:30 AM CDT documented as of this encounter Functional Status documented as of this encounter Mental Status * Question Answer Entry Date Author BP 124/60 11/07/2020 1:46 PM CDT Pruit t, Kalyn E Temp 98.1 11/07/2020 1:46 PM CDT Pruit t, Kalyn E Pulse 80 11/07/2020 1:46 PM CDT Pruit t, Kalyn E SpO2 97 11/07/2020 1:46 PM CDT Pruit t, Kalyn E documented in this encounter Miscellaneous Notes * Telephone Encounter - Miriam Richardson RN - 11/08/2020 1:46 PM CDT The original prescription was reordered on 11/07/2020 by Steven Escudero MD. documented in this encounter Plan of Treatment Not on file documented as of this encounter Visit Diagnoses Diagnosis Chronic bilateral low back pain with sciatica, sciatica laterality unspecified Chronic prescription opiate use documented in this encounter Additional Health Concerns Assessment Noted Time PHQ-9 Depression Total Score: 3 06/19/20 20 5:15 PM MARKETING ACCOUNT MANAGER documented as of this encounter Care Teams Recreation Program Specialist Relationship Specialty Start Date End Date Steven Escudero MD PCP - General Family Medicine 06/19/20 08/06/21 Sebastián Anthony MD [address] [place] [address] PCP - General Family Medicine 08/07/21 11/18/21 Steven Escudero MD PCP - General Family Medicine 11/19/21 04/15/22 Sebastián Anthony MD [address] [place] [address] PCP - General Internal Medicine 04/16/22 Steven Escudero MD Family Medicine 06/14/20 04/17/22 Felix Velasco, DATA CONSULTANT, MACHINE SETUP OPERATOR [address] [place] [address] [place] [address] Internal Medicine 06/19/20 documented as of this encounter
--- OUTSIDE RECORDS SUMMARY | 2025-07-15 10:22 | XMS_ITS | Encounter Summary ---
Author Organization [facility] Address [address] [place] [address] Phone Care Team Providers Care Flatwork Ironer Name Role Phone Robpippa Felix Esquivel APRN, TELECOMMUNICATIONS SPECIALIST Unavailable Sebastián Anthony MD Primary Care Provider [phone] Reason for Visit * Reason Comments Medication Refill Encounter Details Date Type Department Care Team (Late st Contact Info) Description 02/26/2023 Refill [facility] - Family [facility] [address] [place] [id number] Steven Escudero MD [address] [place] [address] Medication Refill Social History Tobacco Use Types [...] Telephone Encounter - Miriam Richardson RN - 02/26/2023 3:[address] Anthony documented in this encounter Plan of Treatment Not on file documented as of this encounter Visit Diagnoses Diagnosis Mixed hyperlipidemia documented in this encounter Additional Health Concerns Assessment Noted Time PHQ-9 Depression Total Score: 0 05/17/20 21 2:00 PM CDT documented as of this encounter Care Teams Flatwork Ironer Relationship Specialty Start Date End Date Sebastián Anthony MD [address] [place] [address] PCP - General Internal Medicine 04/16/22 Felix Velasco, POLYSOMNOGRAPHIC TECH, TELECOMMUNICATIONS SPECIALIST [address] [place] [address] [place] [address] Internal Medicine 06/19/20 documented as of this encounter
--- OUTSIDE RECORDS SUMMARY | 2025-07-15 10:22 | XMS_ITS | Encounter Summary ---
Author Organization [facility] Address [address] [place] [address] Phone Care Team Providers Care Millinery Blocker Name Role Phone Robpippa Felix Esquivel APRN, FACILITY SERVICE ASSOCIATE Unavailable [phone] Sebastián Anthony MD Primary Care Provider [phone] Reason for Visit * Reason Comments Medication Refill Encounter Details Date Type Department Care Team (Late st Contact Info) Description 11/07/2022 Refill [facility] Family Medicine [facility] [address] [place] [address] Steven Escudero MD [address] [place] [address] Medication Refill Social History Tobacco Use Types [...] documented as of this encounter Care Teams Millinery Blocker Relationship Specialty Start Date End Date Sebastián Anthony MD [address] [place] [address] PCP - General Internal Medicine 04/16/22 Felix Velasco, PSYCHOTHERAPIST SOCIAL WORKER, FACILITY SERVICE ASSOCIATE [address] [place] [address] [address] [place] [address] Internal Medicine 06/19/20 documented as of this encounter
--- OUTSIDE RECORDS SUMMARY | 2025-07-15 10:22 | XMS_ITS | Encounter Summary ---
Author Organization [facility] Address [address] [place] [address] Phone Care Team Providers Care Fisher Eel Spear Name Role Phone Robpippa Felix Esquivel APRN, ENGINEERING TECHNICAL WRITER Unavailable [phone] Sebastián Anthony MD Primary Care Provider [phone] Reason for Visit * Reason Comments Medication Refill Encounter Details Date Type Department Care Team (Late st Contact Info) Description 11/04/2022 Refill [facility] - Family Medicine [facility] [address] [place] [id number] Steven Escudero MD [address] [place] [address] Medication Refill Social History Tobacco Use Types [...] Telephone Encounter - Miriam Richardson RN - 11/04/2022 11:[address] Anthony documented in this encounter Plan of Treatment Not on file documented as of this encounter Visit Diagnoses Not on filedocumented in this encounter Additional Health Concerns Assessment Noted Time PHQ-9 Depression Total Score: 0 05/17/20 21 2:00 PM CDT documented as of this encounter Care Teams Fisher Eel Spear Relationship Specialty Start Date End Date Sebastián Anthony MD [address] [place] [address] PCP - General Internal Medicine 04/16/22 Felix Velasco, PRIVATE ADVISOR, ENGINEERING TECHNICAL WRITER [address] [place] [address] [place] [address] Internal Medicine 06/19/20 documented as of this encounter
--- OUTSIDE RECORDS SUMMARY | 2025-07-15 10:22 | XMS_ITS | Encounter Summary ---
Author Organization [facility] Address [address] [place] [address] Phone Care Team Providers Care Bulb Inspector Name Role Phone Steven Escudero MD Unavailable Steven Escudero MD Primary Care Provider [phone] Felix Velasco APRN, [facility] Unavailable Sebastián Anthony MD Primary Care Provider [phone] Steven Escudero MD Primary Care Provider [phone] Sebastián Anthony MD Primary Care Provider [phone] Reason for Visit * Reason Comments Medication Refill Encounter Details Date Type Department Care Team (Late st Contact Info) Description 12/11/2020 Refill [facility] Family Medicine [facility] [address] [place] [address] Steven Escudero MD [address] [place] [address] Medication Refill Social History Tobacco Use Types [...] Telephone Encounter - Miriam Richardson RN - 12/13/2020 9:09 AM CDT The original prescription was reordered on 12/12/2020 by Steven Escudero MD * Telephone Encounter - Danita Mnea RN - 12/12/2020 3:03 PM CDT duplicate documented in this encounter Plan of Treatment Not on file documented as of this encounter Visit Diagnoses Diagnosis Chronic bilateral low back pain with sciatica, sciatica laterality unspecified Chronic prescription opiate use documented in this encounter Additional Health Concerns Assessment Noted Time PHQ-9 Depression Total Score: 3 06/19/20 20 5:15 PM PHOTO LAB TECHNICIAN documented as of this encounter Care Teams Bulb Inspector Relationship Specialty Start Date End Date Steven Escudero MD PCP - General Family Medicine 06/19/20 08/06/21 Sebastián Anthony MD [address] [place] [address] PCP - General Family Medicine 08/07/21 11/18/21 Steven Escudero MD PCP - General Family Medicine 11/19/21 04/15/22 Sebastián Anthony MD [address] [place] [address] PCP - General Internal Medicine 04/16/22 Steven Escudero MD Family Medicine 06/14/20 04/17/22 Felix Velasco, RUBBER INSULATOR, AREA MECHANIC [address] [facility] [place] [address] Internal Medicine 06/19/20 documented as of this encounter
--- OUTSIDE RECORDS SUMMARY | 2025-07-15 10:22 | XMS_ITS | Encounter Summary ---
Author Organization [facility] Address [address] [place] [address] Phone Care Team Providers Care Project Facilitator Name Role Phone Robpippa Felix Esquivel APRN, MED ASST Unavailable [phone] Sebastián Anthony MD Primary Care Provider [phone] Reason for Visit * Reason Comments Medication Refill Encounter Details Date Type Department Care Team (Late st Contact Info) Description 02/26/2023 Refill [facility] Family [facility] [address] [place] [phone] Steven Escudero MD [address] [place] [address] Medication Refill Social History Tobacco Use Types [...] documented as of this encounter Care Teams Project Facilitator Relationship Specialty Start Date End Date Sebastián Anthony MD [address] [place] [address] PCP - General Internal Medicine 04/16/22 Felix Velasco, GOVERNMENT SERVICES PROFESSIONAL, MED ASST [address] [facility] [address] [place] [address] Internal Medicine 06/19/20 documented as of this encounter
--- OUTSIDE RECORDS SUMMARY | 2025-07-15 10:22 | XMS_ITS | Encounter Summary ---
Author Organization [facility] Address [address] [place] [address] Phone Care Team Providers Care Millinery Blocker Name Role Phone Steven Escudero MD Unavailable Steven Escudero MD Primary Care Provider [phone] Felix Velasco APRN, [facility] Unavailable [phone] Sebastián Anthony MD Primary Care Provider [phone] Steven Escudero MD Primary Care Provider [phone] Sebastián Anthony MD Primary Care Provider [phone] Reason for Visit * Reason Comments Medication Refill Encounter Details Date Type Department Care Team (Late st Contact Info) Description 08/07/2020 Refill [facility] [address] [place] [address] Steven Escudero MD [address] [place] [address] Medication Refill Social History Tobacco Use Types [...] Encounter - Miriam Richardson RN - 08/07/2020 3:06 PM CST Medication failed the protocol, provider to review and approve the medication order if appropriate. Requested Prescriptions Pending Prescriptions Disp Refills promethazine (PHENERGAN) 25 MG Tablet [Pharmacy Med Name: PROMETHAZINE HCL 25 MG TAB 25 Tablet] 30 Tab 0 Sig: TAKE 1 TAB BY MOUTH EVERY 6 HOURS NEEDED FOR NAUSEA - 1ST LINE. Gastroenterology: Antiemetics Passed - 08/07/2020 1:00 PM Passed - Valid encounter within last 12 months Past Office Visits Recent Outpatient Visits 1 month ago Gastroesophageal reflux disease, unspecified whether esophagitis present [facility]N, TECHNICAL TRAINER 2 months ago Essential hypertension [facility] Steven Jones MD 9 months ago Essential hypertension [facility] Steven Jones MD 10 months ago Acute renal failure with tubular necrosis (HCC) [facility] Steven Jones MD 11 months ago Essential hypertension [facility] Steven Jones MD 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 Future 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 In 2 weeks Steven Escudero MD [facility] Vinayak [facility] SENIOR SOFTWARE SYSTEMS ENGINEER - Recent and Past Visits Recent Visits Date Type Provider Dept 06/19/20 Office Visit No Spring APN, BRITTANY [facility] 05/25/20 Office Visit Steven Escudero MD [facility] 10/13/19 Office Visit Steven Escudero MD [facility] 09/29/19 Office Visit Steven Escudero MD [facility] 08/25/19 Office Visit Steven Escudero MD [facility] 07/11/19 Office Visit Celso Prado APN, BRITTANY [facility] 06/01/19 Office Visit [facility]ero MD [facility] Showing recent visits within past 460 days with a meds authorizing provider and meeting all other requirements Future 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 Date Type Provider Dept 08/27/20 Appointment Steven Escudero MD [facility] Showing future appointments within next 90 days with a meds authorizing provider and meeting all other requirements Ventolin HFA 108 (90 Base) MCG/ACT Aerosol Solution [Pharmacy Med Name: VENTOLIN HFA 90 MCG [id number] (90 BAS Aerosol] 36 g 0 Sig: TAKE 2 PUFFS BY INHALATION EVERY 4 HOURS NEEDED FOR WHEEZING. Pulmonology: Beta Agonists - Albuterol & Levalbuterol Failed - 08/07/2020 1:00 PM Failed - May refill 2 inhalers, 0 refills one time since last office visit. May refill #50 nebulizer vials, 0 refills for albuterol or #48 vials, 0 refills for Xopenex one time since last office visit. Passed - Valid encounter within last 6 months Past Office Visits Recent Outpatient Visits 1 month ago Gastroesophageal reflux disease, unspecified whether esophagitis present [facility] - No Marcelino APN, TECHNICAL TRAINER 2 months ago Essential hypertension [facility] Steven Faria MD 9 months ago Essential hypertension [facility] Steven Faria MD 10 months ago Acute renal failure with tubular necrosis (HCC) [facility] Steven Faria MD 11 months ago Essential hypertension [facility] Steven Faria MD 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 Future 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 In 2 weeks Steven Escudero MD [facility] Vinayak [facility] SENIOR SOFTWARE SYSTEMS ENGINEER - Recent and Past Visits Recent Visits Date Type Provider Dept 06/19/20 Office Visit No Spring APN, TECHNICAL TRAINER [facility] 05/25/20 Office Visit Steven Escudero, [facility] 10/13/19 Office Visit Steven Escudero MD [facility] 09/29/19 Office Visit Steven Escudero, [facility] 08/25/19 Office Visit Steven Escudero MD [facility] 07/11/19 Office Visit Celso Prado APN, TECHNICAL TRAINER [facility] 06/01/19 Office Visit Steven Escudero, MD [facility] [...] Readings from Last 1 Encounters: 06/19/20 132/74 GER PRIMARY documented in this encounter Plan of Treatment Not on file documented as of this encounter Visit Diagnoses Not on filedocumented in this encounter Additional Health Concerns Assessment Noted Time PHQ-9 Depression Total Score: 3 06/19/20 5:15 PM MANAGER PRIMARY documented as of this encounter Care Teams Millinery Blocker Relationship Specialty Start Date End Date Steven Escudero MD PCP - General Family Medicine 06/19/20 08/06/21 Sebastián [place] [address] PCP - General Family Medicine 08/07/21 11/18/21 Steven Escudero MD PCP - General Family Medicine 11/19/21 04/15/22 Sebastián Anthony MD [address] [place] [address] PCP - General Internal Medicine 04/16/22 Steven Escudero MD Family Medicine 06/14/20 04/17/22 Felix Velasco, POWER GENERATION TECHNICIAN, TECHNICAL TRAINER [address] [place] [address] [place] [address] Internal Medicine 06/19/20 documented as of this encounter
--- OUTSIDE RECORDS SUMMARY | 2025-07-15 10:22 | XMS_ITS | Encounter Summary ---
Author Organization [facility] Address [address] [place] [address] Phone Care Team Providers Care Event Promotions Coordinator Name Role Phone Steven Escudero MD Unavailable Steven Escudero MD Primary Care Provider [phone] Felix Velasco APRN, [facility] Unavailable [phone] Sebastián Anthony MD Primary Care Provider [phone] Steven Escudero MD Primary Care Provider [phone] Sebastián Anthony MD Primary Care Provider [phone] Reason for Visit * Reason Comments Medication Refill Encounter Details Date Type Department Care Team (Late st Contact Info) Description 11/01/2020 Refill [facility] [address] [place] [address] Steven Escudero MD [address] [place] [address] Medication Refill Social History Tobacco Use Types [...] encounter Miscellaneous Notes * Telephone Encounter - Wong Levin RN - 11/02/2020 11:42 AM CDT Medication failed the protocol, provider to review and approve the medication order if appropriate Last OV 08/27/20, F/U 11/13/20, Last Rx Ventolin 09/27/20, Flonase 03/09/20 wong KIMBALL Requested Prescriptions Pending Prescriptions Disp Refills Ventolin HFA 108 (90 Base) MCG/ACT Aerosol Solution [Pharmacy Med Name: VENTOLIN HFA 90 MCG [id number] (90 BAS Aerosol] 36 g 0 Sig: TAKE 2 PUFFS BY INHALATION EVERY 4 HOURS NEEDED FOR WHEEZING. Pulmonology: Beta Agonists - Albuterol & Levalbuterol Failed - 11/01/2020 12:28 PM Failed - May refill 2 inhalers, 0 refills one time since last office visit. May refill #50 nebulizer vials, 0 refills for albuterol or #48 vials, 0 refills for Xopenex one time since last office visit. Passed - Valid encounter within last 6 months Past Office Visits Recent Outpatient Visits 2 months ago Mixed hyperlipidemia [facility] - [facility] Medicine - Steven Jones MD 4 months ago Gastroesophageal reflux disease, unspecified whether esophagitis present [facility] - No Marcelino APN, COLLARETTE SEPARATOR 5 months ago Essential hypertension [facility] - Family Medicine - Steven Jones MD 1 year ago Essential hypertension [facility] - Steven Jones MD 1 year ago Acute renal failure with tubular necrosis (HCC) [facility] Medical [facility] Family Medicine - Steven Jones MD 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 Future 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 In 1 week SAHCECHO1 [facility] Cardiology Services, [facility] In 1 week SAHCNMHOTLAB [facility] Nuclear Medicine, [facility] In 1 week SAHCNM1 [facility] Nuclear Medicine, [facility] In 1 week SAHCSTRESSLAB1 [facility] Cardiology Stress, [facility] In 1 week [facility]NM1 [facility] Nuclear Medicine, [facility] Ultrasound, [facility] WILL CALL CLERK - Recent and Past Visits Recent Visits Date Type Provider Dept 08/27/20 Telemedicine Steven Escudero MD [facility] 06/19/20 Office Visit No Spring APN, COLLARETTE SEPARATOR [facility] Vinayak 05/25/20 Office Visit Steven Escudero MD [facility] 10/13/19 Office Visit Steven Escudero MD [facility] 09/29/19 Office Visit Steven Escudero MD [facility] 08/25/19 Office Visit [facility] Showing recent visits within past 460 days with a meds authorizing provider and meeting all other requirements Future 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 No visits were found meeting these conditions. Showing future appointments within next 90 days with a meds authorizing provider and meeting all other requirements Passed - Last BP in normal range BP Readings from Last 1 Encounters: 06/19/20 132/74 fluticasone (FLONASE) 50 MCG/ACT Suspension [Pharmacy Med Name: FLUTICASONE PROP 50 MCG SPR 50 AZALEA]16 g 0 Si SPRAYS BY NASAL ROUTE DAILY. USE IN EACH NOSTRIL DIRECTED. Ear, Nose, and Throat: Nasal Preparations - Corticosteroids Passed - 11/01/2020 12:28 PM Passed - Valid encounter within last 12 months Past Office Visits Recent Outpatient Visits 2 months ago Mixed hyperlipidemia [facility] Medical [facility] - Family Medicine - Steven Jones MD 4 months ago Gastroesophageal reflux disease, unspecified whether esophagitis present [facility] - No Marcelino APN, COLLARETTE SEPARATOR 5 months ago Essential hypertension [facility] - Steven Jones MD 1 year ago Essential hypertension [facility] - Steven Jones MD 1 year ago Acute renal failure with tubular necrosis (HCC) [facility] - Steven Jones MD 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 Future 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 In 1 week SAHCECHO1 [facility] Cardiology Services, [facility] In 1 week SAHCNMHOTLAB [facility] Nuclear Medicine, [facility] In 1 week SAHCNM1 [facility] Nuclear Medicine, [facility] In 1 week SAHCSTRESSLAB1 [facility] Cardiology Stress, [facility] In 1 week SAHCNM1 [facility] Nuclear Medicine, [facility] In 1 week SAHCUSTECH1; SAHCUS3 [facility] Ultrasound, [facility] WILL CALL CLERK - Recent and Past Visits Recent Visits Date Type Provider Dept 08/27/20 Telemedicine Steven Escudero MD [facility] 06/19/20 Office Visit No Spring APN, BRITTANY [facility] 05/25/20 Office Visit Steven Escudero MD [facility] 10/13/19 Office Visit Steven Escudero MD [facility] 09/29/19 Office Visit Steven Escudero MD [facility] 08/25/19 Office Visit [facility] Vin[facility] Showing recent visits within past 460 days with a meds authorizing provider and meeting all other requirements Future 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 No visits were found meeting these conditions. 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 documented as of this encounter Care Teams Event Promotions Coordinator Relationship Specialty Start Date End Date Steven Escudero MD PCP - General Family Medicine 06/19/20 08/06/21 Sebastián Anthony MD [address] [facility] [facility] [place] [address] PCP - General Family Medicine 08/07/21 11/18/21 Steven Escudero MD PCP - General Family Medicine 11/19/21 04/15/22 Sebastián Anthony MD [address] [place] [address] PCP - General Internal Medicine 04/16/22 Steven Escudero MD Family Medicine 06/14/20 04/17/22 Felix Velasco, SPARMAKER, COLLARETTE SEPARATOR [address] [place] [address] [place] [address] Internal Medicine 06/19/20 documented as of this encounter
--- OUTSIDE RECORDS SUMMARY | 2025-07-15 10:22 | XMS_ITS | Encounter Summary ---
Author Organization [facility] Address [address] [place] [address] Phone Care Team Providers Care Software Manager Name Role Phone Robpippa Felix Esquivel APRN, COMMERCIAL REAL ESTATE UNDERWRITER Unavailable [phone] Sebastián Anthony MD Primary Care Provider [phone] Reason for Visit * Reason Comments Medication Refill Encounter Details Date Type Department Care Team (Late st Contact Info) Description 03/05/2023 Refill [facility] [address] [place] [id number] Steven Escudero MD [address] [place] [address] Medication Refill Social History Tobacco Use Types [...] Telephone Encounter - Miriam Richardson RN - 03/06/2023 8:[address] Anthony documented in this encounter Plan of Treatment Not on file documented as of this encounter Visit Diagnoses Not on filedocumented in this encounter Additional Health Concerns Assessment Noted Time PHQ-9 Depression Total Score: 0 05/17/20 21 2:00 PM CDT documented as of this encounter Care Teams Software Manager Relationship Specialty Start Date End Date Sebastián Anthony MD [address] [place] [address] PCP - General Internal Medicine 04/16/22 Felix Velasco, BYPRODUCTS MAKER, COMMERCIAL REAL ESTATE UNDERWRITER [address] [place] [address] [place] [address] Internal Medicine 06/19/20 documented as of this encounter
--- OUTSIDE RECORDS SUMMARY | 2025-07-15 10:22 | XMS_ITS | Encounter Summary ---
Author Organization [facility] Address [address] [place] [address] Phone Care Team Providers Care Time Clock Inspector Name Role Phone Steven Escudero MD Unavailable Steven Escudero MD Primary Care Provider [phone] Felix Velasco APRN, [facility] Unavailable [phone] Sebastián Anthony MD Primary Care Provider [phone] Steven Escudero MD Primary Care Provider [phone] Sebastián Anthony MD Primary Care Provider [phone] Reason for Visit * Reason Comments Medication Refill Encounter Details Date Type Department Care Team (Late st Contact Info) Description 08/21/2020 Refill [facility] [address] [place] [address] Steven Escudero MD [address] [place] [address] Medication Refill Social History Tobacco Use Types [...] COVID-19? No / Unsure 08/20/2020 9:08 AM DELIVERY MAN documented as of this encounter Miscellaneous Notes * Telephone Encounter - Gaurav Chacon MD - 08/21/2020 12:17 PM CST Prescription approved. Please call in VERY MAN * Telephone Encounter - Danita Mena RN - 08/21/2020 10:39 AM CST Medication failed the protocol, provider to review and approve the medication order if appropriate. Requested Prescriptions Pending Prescriptions Disp Refills citalopram (CeleXA) 40 MG Tablet [Pharmacy Med Name: CITALOPRAM HBR 40 MG TABLET 40 Tablet] 45 Tab 3 Sig: TAKE 0.5 TABS BY MOUTH DAILY. Not Delegated - Psychiatry: Antidepressants Failed - 08/21/2020 8:49 AM Failed - This refill cannot be delegated Passed - Valid encounter within last 12 months Past Office Visits Recent Outpatient Visits 2 months ago Gastroesophageal reflux disease, unspecified whether esophagitis present [facility] - Family Medicine - No Marcelino APN, WELDING FOREMAN 2 months ago Essential hypertension [facility] - Steven Jones MD 10 months ago Essential hypertension [facility] Family Medicine - Steven Jones MD 10 months ago Acute renal failure with tubular necrosis (HCC) [facility] - Steven Jones MD 12 months ago Essential hypertension [facility] - Steven Jones MD 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 Future 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 In 6 days Steven Escudero MD [facility] - Vinayak, [facility] INTERVENTION NURSE - Recent and Past Visits Recent Visits Date Type Provider Dept 06/19/20 Office Visit No Spring APN, WELDING FOREMAN [facility] 05/25/20 Office Visit Steven Escudero, [facility] 10/13/19 Office Visit Steven Escudero MD [facility] 09/29/19 Office Visit Steven Escudero, [facility] 08/25/19 Office Visit Steven Escudero MD [facility] 07/11/19 Office Visit Celso Prado APN, WELDING FOREMAN [facility] 06/01/19 Office Visit Steven Escudero MD [facility] Vinayak Showing recent visits within past 460 days with a meds authorizing provider and meeting all other requirements Future 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 Date Type Provider Dept 08/27/20 Appointment Steven Escudero MD [facility] Vinayak Showing future appointments within next 90 days with a meds authorizing provider and meeting all other requirements VERY MAN documented in this encounter Plan of Treatment Not on file documented as of this encounter Visit Diagnoses Not on filedocumented in this encounter Additional Health Concerns Assessment Noted Time PHQ-9 Depression Total Score: 3 06/19/20 20 5:15 PM DELIVERY MAN documented as of this encounter Care Teams Time Clock Inspector Relationship Specialty Start Date End Date Steven Escudero MD PCP - General Family Medicine 06/19/20 08/06/21 Sebastián [place] [address] PCP - General Family Medicine 08/07/21 11/18/21 Steven Escudero MD PCP - General Family Medicine 11/19/21 04/15/22 Sebastián Anthony MD [address] [place] [address] PCP - General Internal Medicine 04/16/22 Steven Escudero MD Family Medicine 06/14/20 04/17/22 Felix Velasco, ROB, WELDING FOREMAN [address] [place] [place] [address] [place] [address] Internal Medicine 06/19/20 documented as of this encounter
--- OUTSIDE RECORDS SUMMARY | 2025-07-15 10:22 | XMS_ITS | Encounter Summary ---
Author Organization [facility] Address [address] [place] [address] Phone Care Team Providers Care Human Factors Advisor Lead Name Role Phone Robpippa Felix Esquivel APRN, COOK FISHING VESSEL Unavailable [phone] Sebastián Anthony MD Primary Care Provider [phone] Reason for Visit * Reason Comments Medication Refill Encounter Details Date Type Department Care Team (Late st Contact Info) Description 03/30/2023 Refill [facility] [address] [place] [phone] Steven Escudero MD [address] [place] [address] Medication Refill Social History Tobacco Use Types [...] Telephone Encounter - Miriam Richardson RN - 03/30/2023 5:34 PM CDT PCP is dr Anthony documented in this encounter Plan of Treatment Not on file documented as of this encounter Visit Diagnoses Not on filedocumented in this encounter Additional Health Concerns Assessment Noted Time PHQ-9 Depression Total Score: 0 05/17/20 21 2:00 PM CDT documented as of this encounter Care Teams Human Factors Advisor Lead Relationship Specialty Start Date End Date Sebastián Anthony MD [address] [place] [address] PCP - General Internal Medicine 04/16/22 Felix Velasco, QUALITY ASSURANCE SUPERVISOR FINAL, COOK FISHING VESSEL [address] [place] [address] [place] [address] Internal Medicine 06/19/20 documented as of this encounter
--- OUTSIDE RECORDS SUMMARY | 2025-07-15 10:22 | XMS_ITS | Clinical Summary ---
Author Organization [facility] Address [address] [place] [address] Phone Care Team Providers Care Drum Tester Name Role Phone Felix Velasco APRN, GROCERY STOCK CLERK Unavailable [phone] Sebastián Anthony MD Primary Care Provider [phone] Allergies Active Allergy Reactions Criticality Noted Date Comments Levofloxacin Anaphylaxis,Swelling ,Unknown High 02/06/2016 Reaction: Swelling, Penicillin G Hives 06/14/2020 Penicillin V Potassium Hives,Rash,Itching High 06/05 Medications aspirin EC 325 MG Tablet Delayed Response TK ONE T PO QD 01/15/20 16 Active citalopram (CeleXA) 40 MG Tablet TAKE 0.5 TABS BY MOUTH DAILY. 45 Tab 3 08/21/19 21 Active busPIRone HCl (BUSPAR) 30 MG Tablet TAKE 1/2 TABLET BY MOUTH 2 TIMES DAILY. 90 Tablet 1 10/23/19 21 Active famotidine (PEPCID) 20 MG TabletIndications: Gastroesophageal reflux disease, unspecified whether esophagitis present Take 1 Tablet by mouth 2 times daily. 60 Tablet 3 02/22/20 21 Active fluticasone (FLONASE) 50 MCG/ACT Suspension 2 SPRAYS BY NASAL ROUTE DAILY. USE IN EACH NOSTRIL DIRECTED. 16 g 3 04/02/20 21 Active risperiDONE (RISPERDAL) 0.5 MG Tablet TAKE ONE TABLET BY MOUTH 4 TIMES DAILY. 360 Tablet 1 05/01/20 Active diazePAM (VALIUM) 5 MG TabletIndications: Chronic bilateral low back pain with sciatica, sciatica laterality unspecified Take 1 Tablet by mouth every 6 hours as needed for Anxiety or Muscle spasms. 120 Tablet 05/23/20 21 Active oxyCODONE-Acetamin ophen (PERCOCET) 10-325 MG TabletIndications: Chronic bilateral low back pain with sciatica, sciatica laterality unspecified,Chroni c prescription opiate use Take one tab po 7 times per day. 210 Tablet 05/17/20 21 Active lovastatin (MEVACOR) 40 MG TabletIndications: Mixed hyperlipidemia Take 40 mg by mouth. 04/30/20 21 Active EPINEPHrine (EPIPEN) 0.3 MG/0.3ML Solution Auto-injector 0.3 mL by Intramuscular route once as needed for Anaphylaxis for up to 1 dose. 2 auto injector 2 05/17/20 Active promethazine (PHENERGAN) 25 MG Tablet TAKE 1 TABLET BY MOUTH EVERY 6 HOURS NEEDED FOR NAUSEA - 1ST LINE. 30 Tablet 07/16/20 Active budesonide-formote rol fumarate (Symbicort) 160-4.5 MCG/ACT AerosolIndications :Chronic obstructive pulmonary disease, unspecified COPD type take 2 Puffs by inhalation 2 times daily. 30.6 g 11/15/19 22 Active Icosapent Ethyl (Vascepa) 1 g CapsuleIndications :Mixed hyperlipidemia Take 2 Capsules by mouth 2 times daily. 360 Capsule 3 11/30/19 22 Active carvedilol (COREG) 6.25 MG Tablet TAKE ONE (1) TABLET BY MOUTH TWO (2) TIMES DAILY. 180 Tablet 3 11/30/19 22 Active clopidogrel (PLAVIX) 75 MG Tablet TAKE ONE (1) TAB BY MOUTH DAILY. 90 Tablet 3 11/30/19 22 Active amLODIPine (NORVASC) 10 MG Tablet TAKE ONE (1) TABLET BY MOUTH DAILY. 90 Tablet 3 12/14/19 22 Active buPROPion SR (WELLBUTRIN SR) 150 MG TABLET SR 12 HR TAKE ONE (1) TABLET BY MOUTH TWO (2) TIMES DAILY. 180 Tablet 1 01/02/20 22 Active Ventolin HFA 108 (90 Base) MCG/ACT Aerosol Solution TAKE TWO (2) PUFFS BY INHALATION EVERY FOUR (4) HOURS NEEDED FOR WHEEZING. 36 g 2 02/14/20 22 Active methylPREDNISolone (Medrol) 4 MG Tablet Therapy PackIndications:Ac luz elena foot pain, right Use as per instructions on package. 21 Tablet 09/27/19 23 Active Active Problems Problem Noted Date Diagnosed Date Acute renal failure 04/17/2022 Arthritis 06/14/2020 Hypertension 06/14/2020 Hyperlipidemia 06/14/2020 COPD (chronic obstructive pulmonary disease) Asthma 06/14/2020 Personal history of tobacco use 06/14/2020 Acute kidney injury 09/20/2019 Chronic prescription opiate use 08/28/2019 Abnormal mammogram of left breast 02/15/2019 Colon cancer screening 02/03/2019 Peripheral vascular disease 11/26/2018 Sleep apnea 11/26/2018 Overview (11/26/2018): Overview: uses CPAP Degenerative disc disease, lumbar 10/06/2018 Chronic obstructive lung disease 10/06/2018 Osteoarthrosis 10/06/2018 Overview (11/26/2018): Back and hips Hyperlipidemia 10/06/2018 Anxiety 10/06/2018 Major depressive disorder 10/06/2018 Bipolar disorder, in partial remission, most recent episode depressed 10/06/2018 Overview (12/03/2021): Last Assessment & Plan: Stable, no recent manic episodes, mildDepression; patient reports multiple stressors including DCFS involvement With grandchildren continue bupropion 150 mg b.i.d., Celexa 40 mg daily Chronic back pain 07/18/2017 Dietary vitamin B12 deficiency anemia 06/10/2017 Hypertension 06/10/2017 Smoker 06/10/2017 Vitamin D deficiency 06/10/2017 Chronic, continuous use of opioids Resolved Problems Problem Noted Date Diagnosed Date Resolved Date Aspiration pneumonia 06/17/2020 021 Acute encephalopathy 06/14/2020 020 Acute hypercapnic respiratory failure 06/14/2020 08/19/2020 Drug overdose, accidental or unintentional, initial encounter 06/14/2020 08/19/2020 DJD (degenerative joint disease), lumbar 06/14/2020 07/10/2020 NIKOLAY (acute kidney injury) 06/14/2020 Hypokalemia 09/29/2019 08/19/2020 Acute renal failure with tubular necrosis 09/29/2019 08/19/2020 Acute cystitis without hematuria 11/26/2018 08/19/2020 Opioid dependence 07/18/2017 08/28/2019 Chronic recurrent sinusitis 06/10/2017 08/19/2020 Immunizations Immunization Administration Dates Next Due Covid-19, Mrna, Lnp-s, PF, 1 00 mcg/0.5 mL Dose (Moderna) 12/27/2020,11/29/2020 Influenza Vaccine greater than 3 yrs 07/14/2016 Influenza Vaccine, Quadrivalent, PF 08/2020,05/25/2020,08/25/2019,2018,07/14/2016 Influenza, Injectable, Quadrivalent 05/11/2017 Family History Medical History Relation Name Comments Depression Father Heart Attack Father High Cholesterol Father Hypertension Father Stroke Father Anxiety disorder Mother Arthritis Mother Chronic Obstructive Pulmonary Disease Mother Depression Mother High Cholesterol Mother Hypertension Mother copd High Cholesterol Sister 1 Hypertension Sister 1 No Known Problems Sister 2 High Cholesterol Sister 3 Hypertension Sister 3 High Cholesterol Sister 4 Hypertension Sister 4 Hypertension Sister 5 Relation Name Status Comments Father Mother Alive Sister 1 Alive Sister 2 Alive Sister 3 Alive Sister 4 Alive Sister 5 Social History Tobacco Use Types Packs/Day Years Used Date Smoking Tobacco: Every Day Cigarettes 1.5 30 Smokeless Tobacco: Never Tobacco Cessation:Ready to Q uit: No; Counseling Given: Yes Comments:used to smoke 2.5 packs a day until ten years ago Alcohol [...] file Not on file Not on file Last Filed Vital Signs Vital Sign Reading Time Taken Comments Blood Pressure 150/88 09/27/2022 10:30 AM SENIOR IT BUSINESS ANALYST Pulse 73 09/27/2022 10:30 AM SENIOR IT BUSINESS ANALYST Temperature 37 C (98.6 F) 09/27/2022 10:30 AM SENIOR IT BUSINESS ANALYST Respiratory Rate 16 09/27/2022 10:30 AM SENIOR IT BUSINESS ANALYST Oxygen Saturation 99% 09/27/2022 10:30 AM SENIOR IT BUSINESS ANALYST Inhaled Oxygen Concentration - - Weight 68 kg (150 lb) 04/16/2022 8:55 PM CDT Height 165.1 cm (5' 5) 04/16/2022 8:55 PM CDT Body Mass Index 24.96 04/16/2022 8:55 PM CDT Plan of Treatment Health Maintenance Due Date Last Done Comments Hepatitis C Virus (HCV) Screening 1972 TdaP Immunization 1972 Hepatitis B Immunization (1 of 3 - 19+ 3-dose series) 1991 Pneumococcal Immunization (50+ years) (1 of 2 - PCV) 1991 Medicare Initial AWV [id number] 01/15/2013 Cologuard 2017 Colonoscopy 2017 Colorectal Cancer Screening 2017 Immunochemical Fecal Occult Blood 2017 Respiratory Syncytial Virus (RSV) Immunization (Adult) (1 - Risk 50-74 years 1-dose series) 2022 Zoster Immunization (1 of 2) 2022 Influenza Immunization (#1) 2025 11/0 11/2021, 05/17/2021, 05/25/2020, Additional history exists SARS-COV-2 Immunization ( season) 2025 12/27/2020, 11/29/2020 Pneumococcal Immunization Combined Discontinued 05/26/2017 Lung Cancer Screening Discontinued 06/14/2020, 016 Discussion re Starting/Frequency of Mammograms Discontinued 06/28/2020, 10/14/2019, 02/25/2019, Additional history exists Mammogram Discontinued 06/28/2020, 02/12/2019 Human Papillomavirus (HPV) Immunization Aged Out No longer eligible based on patient's age to complete this topic Meningococcal Immunization (ACWY) Aged Out No longer eligible based on patient's age to complete this topic Rotavirus Immunization Aged Out No lo nger eligible based on patient's age to complete this topic Procedures Procedure Name Priority Date/Time Associated Diagnosis Comments DANE DIAG BILATERAL W IMPLANTS DIGITAL W CAD W VAZQUEZ Routine 06/28/2020 11:02 AM SENIOR IT BUSINESS ANALYST Abnormal mammogram of left breast CT CHEST W/O CONTRAST STAT 06/14/2020 10:46 AM CDT from Last 3 Months or Most Recently Relevant to Health Maintenance Results * DANE DIAG BILATERAL W IMPLANTS DIGITAL W CAD W VAZQUEZ (06/28/2020 11:02 AM SENIOR IT BUSINESS ANALYST) Anatomical Region Laterality Modality breast Bilateral Mammography 06/28/2020 9:36 AM SENIOR IT BUSINESS ANALYST Narrative 07/03/2020 1:50 PM SENIOR IT BUSINESS ANALYST - DANE DIAG BILATERAL W IMPLANTS DIGITAL W CAD W VAZQUEZ BILATERAL DIGITAL DIAGNOSTIC MAMMOGRAM 3D/2D WITH CAD WITH MEDIOLATERAL MEDIOLATERAL OBLIQUE CRANIOCAUDAL MAGNIFICATION WITH AUGMENTATION: 06/28/2020 The study was acquired using digital technology and interpreted from soft copy. Current study was also evaluated with ICAD version 7.2. CLINICAL: Diagnostic study. Patient returns for a 6 month follow-up left breast as well as annual study. Personal history of gynecological cancer. No family history of breast cancer. COMPARISONS: Comparison is made to exam dated: 02/12/2019 [facility]. BREAST TISSUE:The tissue of both breasts is heterogeneously dense. This may lower the sensitivity of mammography. FINDINGS: There is a cluster of coarse round calcifications in the left breast upper inner aspect middle depth. This appears stable and will continue to be classified as probably benign. No other significant masses or calcifications are seen in the breast. IMPRESSION: BI-RAD 3 PROBABLY BENIGN A follow-up mammogram in 12 months is recommended to demonstrate stability. The patient has been or will be contacted. Electronically signed by: Wicho Lees M.D. ll/:06/28/2020 10:49:01 Wood Tile Installer: Brandy Jhaveri)([place]eron[place]), [facility] letter sent: Birad 3 Followup Reading location: [place] BI-RADS: 3 Probably benign Procedure Note Wicho Lees MD - 07/03/2020 - DANE DIAG BILATERAL W IMPLANTS DIGITAL W CAD W VAZQUEZ BILATERAL DIGITAL DIAGNOSTIC MAMMOGRAM 3D/2D WITH CAD WITH MEDIOLATERAL MEDIOLATERAL OBLIQUE CRANIOCAUDAL MAGNIFICATION WITH AUGMENTATION: 06/28/2020 The study was acquired using digital technology and interpreted from soft copy. Current study was also evaluated with ICAD version 7.2. CLINICAL: Diagnostic study. Patient returns for a 6 month follow-up left breast as well as annual study. Personal history of gynecological cancer. No family history of breast cancer. COMPARISONS: Comparison is made to exam dated: 02/12/2019 [facility]. BREAST TISSUE:The tissue of both breasts is heterogeneously dense. This may lower the sensitivity of mammography. FINDINGS: There is a cluster of coarse round calcifications in the left breast upper inner aspect middle depth. This appears stable and will continue to be classified as probably benign. No other significant masses or calcifications are seen in the breast. IMPRESSION: BI-RAD 3 PROBABLY BENIGN A follow-up mammogram in 12 months is recommended to demonstrate stability. The patient has been or will be contacted. Electronically signed by: Wicho Lees M.D. ll/:06/28/2020 10:49:01 Wood Tile Installer: Brandy White(Yonny)([place]), [facility] letter sent: Birad 3 Followup Reading location: [place] BI-RADS: 3 Probably benign us Steven Escudero MD IMG MAMMO ORDERABLES Final Resul t * CT CHEST W/O CONTRAST (06/14/2020 10:46 AM CDT) Anatomical Region Laterality Modality Chest N/A Computed Tomogra phy 06/14/2020 11:1 4 AM CDT Impressions 06/14/2020 11:17 AM CDT IMPRESSION: 1. Multifocal pneumonia, with right lung predominance. This has the appearance of a combined bronchopneumonia and alveolar pneumonia. Superimposed aspiration is not excluded, particularly given the identification of some mild debris within the trachea. Chest CT follow-up is recommended in 6-8 weeks to document stability or resolution of the above findings. 2. Mild interstitial edema of the right middle and right lower lobe, which may be related to the underlying infectious/inflammatory process, though a mild asymmetric pulmonary edema pattern could have a similar appearance. 3. Asymmetric soft tissue of the lateral left breast, with mildly prominent left subpectoral lymph node. Diagnostic mammographic follow-up recommended. 4. Small hiatal hernia. Narrative 06/14/2020 11:17 AM CDT EXAM DESCRIPTION: CT CHEST W/O CONTRAST REASON FOR STUDY: Shortness of breath and altered mental status today TECHNIQUE: CT scan of the chest performed without intravenous contrast using helical scanning technique. Reconstructed coronal and sagittal MPR images reviewed. All images stored on PACS. Automated exposure control was used as a dose optimization technique for this examination. COMPARISON: Same-day chest radiograph. FINDINGS: Absence of intravenous contrast limits sensitivity for detection of post-traumatic abnormalities, vascular abnormalities, inflammatory change, and visceral lesions. LUNGS: Mild paraseptal emphysema. Small amount of debris is present within the trachea. There are scattered centrilobular ground-glass opacities throughout the right lung, greatest within the right lower lobe. Few centrilobular ground-glass opacities are additionally noted at the medial aspect of the left lower lobe. There is slightly more confluent airspace disease in the dependent aspect of both lower lobes. Smooth septal line thickening is present within portions of the right middle and right lower lobe. Small tracheal diverticulum, axial image 21, a normal anatomic variant. PLEURA: No pleural effusion or pneumothorax. MEDIASTINUM/COLE: No supraclavicular or mediastinal lymphadenopathy. No appreciable hilar lymphadenopathy, within the limitation of the noncontrast technique. Scattered subcentimeter mediastinal lymph nodes do not meet size criteria for lymphadenopathy. Small hiatal hernia. No significant abnormality of the thoracic esophagus, within the limitation of the noncontrast CT technique. HEART: Heart size is normal in size. No pericardial effusion; trace fluid within the superior pericardial recess. Atheromatous calcification of coronary arteries. VASCULATURE: No thoracic aortic aneurysm. Mild atheromatous calcification of the thoracic aorta and proximal great vessels. AXILLA: No axillary lymphadenopathy. Few small bilateral subpectoral lymph nodes, of uncertain clinical significance. A left subpectoral lymph node, axial image 23, measures 6 mm in short axis. CHEST WALL: Bilateral breast implants. Asymmetric soft tissue within the lateral left breast, which has a slightly spiculated appearance, axial image 41. This measures up to 1.2 cm. This could represent normal, asymmetric glandular tissue, though malignancy should be excluded, particularly given the left subpectoral lymph node, as detailed above. Diagnostic mammography follow-up recommended on a nonemergent basis. HARDWARE/LINES/TUBES: None. UPPER ABDOMEN: No significant abnormality. MUSCULOSKELETAL: No suspicious abnormality. OTHER: No significant abnormality. THIS IS AN ELECTRONICALLY VERIFIED FINAL REPORT 06/14/2020 11:14 AM - Electronically signed by Jose De Jesus Kamara M.D. RT: RT Report ID: [id number] Reading Location: [place] [address] Procedure Note Jose De Jesus Kamara MD - 06/14/2020 EXAM DESCRIPTION: CT CHEST W/O CONTRAST REASON FOR STUDY: Shortness of breath and altered mental status today TECHNIQUE: CT scan of the chest performed without intravenous contrast using helical scanning technique. Reconstructed coronal and sagittal MPR images reviewed. All images stored on PACS. Automated exposure control was used as a dose optimization technique for this examination. COMPARISON: Same-day chest radiograph. FINDINGS: Absence of intravenous contrast limits sensitivity for detection of post-traumatic abnormalities, vascular abnormalities, inflammatory change, and visceral lesions. LUNGS: Mild paraseptal emphysema. Small amount of debris is present within the trachea. There are scattered centrilobular ground-glass opacities throughout the right lung, greatest within the right lower lobe. Few centrilobular ground-glass opacities are additionally noted at the medial aspect of the left lower lobe. There is slightly more confluent airspace disease in the dependent aspect of both lower lobes. Smooth septal line thickening is present within portions of the right middle and right lower lobe. Small tracheal diverticulum, axial image 21, a normal anatomic variant. PLEURA: No pleural effusion or pneumothorax. MEDIASTINUM/COLE: No supraclavicular or mediastinal lymphadenopathy. No appreciable hilar lymphadenopathy, within the limitation of the noncontrast technique. Scattered subcentimeter mediastinal lymph nodes do not meet size criteria for lymphadenopathy. Small hiatal hernia. No significant abnormality of the thoracic esophagus, within the limitation of the noncontrast CT technique. HEART: Heart size is normal in size. No pericardial effusion; trace fluid within the superior pericardial recess. Atheromatous calcification of coronary arteries. VASCULATURE: No thoracic aortic aneurysm. Mild atheromatous calcification of the thoracic aorta and proximal great vessels. AXILLA: No axillary lymphadenopathy. Few small bilateral subpectoral lymph nodes, of uncertain clinical significance. A left subpectoral lymph node, axial image 23, measures 6 mm in short axis. CHEST WALL: Bilateral breast implants. Asymmetric soft tissue within the lateral left breast, which has a slightly spiculated appearance, axial image 41. This measures up to 1.2 cm. This could represent normal, asymmetric glandular tissue, though malignancy should be excluded, particularly given the left subpectoral lymph node, as detailed above. Diagnostic mammography follow-up recommended on a nonemergent basis. HARDWARE/LINES/TUBES: None. UPPER ABDOMEN: No significant abnormality. MUSCULOSKELETAL: No suspicious abnormality. OTHER: No significant abnormality. THIS IS AN ELECTRONICALLY VERIFIED FINAL REPORT 06/14/2020 11:14 AM - Electronically signed by Jose De Jesus Kamara M.D. RT: RT Report ID: [id number] Reading Location: [place] [address] IMPRESSION: 1. Multifocal pneumonia, with right lung predominance. This has the appearance of a combined bronchopneumonia and alveolar pneumonia. Superimposed aspiration is not excluded, particularly given the identification of some mild debris within the trachea. Chest CT follow-up is recommended in 6-8 weeks to document stability or resolution of the above findings. 2. Mild interstitial edema of the right middle and right lower lobe, which may be related to the underlying infectious/inflammatory process, though a mild asymmetric pulmonary edema pattern could have a similar appearance. 3. Asymmetric soft tissue of the lateral left breast, with mildly prominent left subpectoral lymph node. Diagnostic mammographic follow-up recommended. 4. Small hiatal hernia. Amandeep Albarran MD [facility] [place] ORDERABLES Final Res ult from Last 3 Months or Most Recently Relevant to Health Maintenance Insurance MEDICAID [place] MEDICARE Advance Directives * Full Code (Latest Code Status on File) Date Activated Date Inactivated Comments 06/14/2020 10:15 AM 06/17/2020 3:57 PM CPR-Full T reatment: FULL ARREST: Attempt Resuscitation/CPR wit intubation and mechanical ventilation. PRE-ARREST: Use entire range of life support measures to stabilize the patient. Care Teams Drum Tester Relationship Specialty Start Date End Date Sebastián Anthony MD [address] [place] [id number] PCP - General Internal Medicine 04/16/22 Felix Velasco, INTERIOR DESIGN COORDINATOR, GROCERY STOCK CLERK [address] [place] [address] [place] [address] Internal Medicine 06/19/20
--- OUTSIDE RECORDS SUMMARY | 2025-07-15 10:23 | XMS_ITS | Encounter Summary ---
Author Organization [facility] Address [address] [place] [address] Phone Care Team Providers Care Test Case Developer Name Role Phone Steven Escudero MD Unavailable Steven Escudero MD Primary Care Provider [phone] Felix Velasco APRN, [facility] Unavailable [phone] Sebastián Anthony MD Primary Care Provider [phone] Steven Escudero MD Primary Care Provider [phone] Sebastián Anthony MD Primary Care Provider [phone] Reason for Visit * Reason Comments Medication Refill Encounter Details Date Type Department Care Team (Late st Contact Info) Description 07/16/2021 Refill [facility] [address] [place] [address] Steven Escudero MD [address] [place] [address] Medication Refill Social History Tobacco Use Types [...] have Coronavirus / COVID-19? No / Unsure 06/19/2021 6:44 AM CDT documented as of this encounter Miscellaneous Notes * Telephone Encounter - Miriam Richardson RN - 07/16/2021 1:38 PM CST PRN medication requires review from provider Last appt 06/19/21 - follow up 09/17/21 Per nursing clinical judgement, provider to review and approve the medication(s) order(s) if appropriate. Requested Prescriptions Pending Prescriptions Disp Refills promethazine (PHENERGAN) 25 MG Tablet [Pharmacy Med Name: PROMETHAZINE HCL 25 MG TAB 25 Tablet] 30 Tablet 0 Sig: Take 1 Tablet by mouth every 6 hours as needed for Nausea - 1st line. There is no refill protocol information for this order HPIECE MAKER documented in this encounter Plan of Treatment Not on file documented as of this encounter Visit Diagnoses Not on filedocumented in this encounter Additional Health Concerns Assessment Noted Time PHQ-9 Depression Total Score: 0 05/17/20 2:00 PM CDT documented as of this encounter Care Teams Test Case Developer Relationship Specialty Start Date End Date Steven Escudero MD PCP - General Family Medicine 06/19/20 08/06/21 Sebastián Anthony MD [address] [place] [address] PCP - General Family Medicine 08/07/21 11/18/21 Steven Escudero MD PCP - General Family Medicine 11/19/21 04/15/22 Sebastián Anthony MD [address] [place] [id number] PCP - General Internal Medicine 04/16/22 Steven Escudero MD Family Medicine 06/14/20 04/17/22 Felix Velasco, JOB COACH, [employer] [address] [place] [place] [address] Internal Medicine 06/19/20 documented as of this encounter
--- OUTSIDE RECORDS SUMMARY | 2025-07-15 10:23 | XMS_ITS | Encounter Summary ---
Author Organization [facility] Address [address] [place] [address] Phone Care Team Providers Care Chief Crew Scheduler Name Role Phone Steven Escudero MD Unavailable Felix Velasco APRN, [facility] Unavailable Sebastián Anthony MD Primary Care Provider [phone] Steven Escudero MD Primary Care Provider [phone] Sebastián Anthony MD Primary Care Provider [phone] Reason for Visit * Reason Comments Medication Refill Encounter Details Date Type Department Care Team (Late st Contact Info) Description 08/19/2021 Refill [facility] - [place] [address] [place] [address] Steven Escudero MD [address] [place] [address] Medication Refill Social History Tobacco Use Types [...] Telephone Encounter - Miriam Richardson RN - 08/20/2021 11:49 AM CST Patient established care with Dr Sebastián Anthony on 08/07/21 - requests denied RAGE HOST documented in this encounter Plan of Treatment Not on file documented as of this encounter Visit Diagnoses Diagnosis Gastroesophageal reflux disease, unspecified whether esophagitis present Mixed hyperlipidemia documented in this encounter Additional Health Concerns Assessment Noted Time PHQ-9 Depression Total Score: 0 05/17/20 2:00 PM CDT documented as of this encounter Care Teams Chief Crew Scheduler Relationship Specialty Start Date End Date Sebastián Anthony MD [address] [place] [address] PCP - General Family Medicine 08/07/21 11/18/21 Steven Escudero MD PCP - General Family Medicine 11/19/21 04/15/22 Sebastián Anthony MD [address] [place] [address] PCP - General Internal Medicine 04/16/22 Steven Escudero MD Family Medicine 06/14/20 04/17/22 Felix Velasco, MANAGER MANUFACTURING, LEGAL ARCHIVIST [address] [place] [address] Internal Medicine 06/19/20 documented as of this encounter
--- OUTSIDE RECORDS SUMMARY | 2025-07-15 10:23 | XMS_ITS | Encounter Summary ---
Author Organization [facility] Healthcare Address [address] [place] [address] Care Team Providers Care Cleaning Specialist Name Role Phone Sebastián Anthony MD Primary Care Provider [phone] Reason for Visit * Auth/Cert (Routine) Specialty Diagnoses / Procedures Referred By Contac t Referred To Contact Diagnoses Encounter for screening colonoscopy Encounter for screening colonoscopy [Z12.11] Procedures OK COLONOSCOPY FLX DX W/COLLJ SPEC WHEN PFRMD COLONOSCOPY Referral ID Status Reason Start Date Expiration Date Visits Re quested Visits Authorized [id number] 1 1 Encounter Details Date Type Department Care Team (Late st Contact Info) Description 02/15/2025 Hospital Encounter [facility] Center [address] [place] [address] Adelfo Kirby MD [address] [place] [address] [address] [place] [address] Social History Tobacco Use Types Packs/Day Years Used Date Smoking Tobacco: Every Day Cigarettes Smokeless Tobacco: Never Alcohol Use Standard Drinks/Week Comments No 0 (1 standard drink = 0.6 oz pur e alcohol) AUDIT-C Answer Date Recorded Q1: How often do you have a drink containing alcohol? Never 02/14/2025 Q2: How many drinks containi ng alcohol do you have on a typical day when you are drinking? Patient does not drink Q3: How often do you have si x or more drinks on one occasion? Never 02/14/2025 PHQ-2 Answer Date Recorded PHQ-2 Total Score (If total score is 3 or more points, staff should administer the PHQ-9) 0 03/30/2025 PHQ-9 Answer Date Recorded PHQ-9 Total Score 18 04/13/2024 Comments No Sex and Gender Information Value Date Recorded Sex Assigned at Not on file Legal Sex Female 4:12 AM TALENT DIRECTOR Gender Identity Not on file Sexual Orientation Not on file documented as of this encounter Functional Status * BP Location Answer Date of Assessment Author Right arm 03/30/2025 1:43 PM Rowan Spencer MA * AUDIT-C Score Answer Date of Assessment Author 0 02/14/2025 12:29 PM Lisa De La Torre RN * Alcohol Use Question Answer Date of Assessment Author Q1: How often do you have a drink containing alcohol? Never 02/14/2025 12:29 PM Jb De La Torre RN Q2: How many drinks containing alcohol do you have on a typical day when you are drinking? Patient does not drink 02/14/2025 12:29 PM Jb De La Torre RN Q3: How often do you have six or more drinks on one occasion? Never 02/14/2025 12:29 PM Jb De La Torre RN * BP Location Answer Date of Assessment Author Right arm 03/30/2025 1:43 PM Rowan Spencer MA documented as of this encounter Plan of Treatment Not on file documented as of this encounter Visit Diagnoses Diagnosis Encounter for screening colonoscopy- Primary documented in this encounter Admitting Diagnoses Diagnosis Encounter for screening colonoscopy documented in this encounter Care Teams Cleaning Specialist Relationship Specialty Start Date End Date Sebastián Anthony [place] [address] PCP - General Family Medicine 08/07/21 documented as of this encounter
--- OUTSIDE RECORDS SUMMARY | 2025-07-15 10:23 | XMS_ITS | Encounter Summary ---
Author Organization [facility] Address [address] [place] [address] Phone Care Team Providers Care Sheet Cutting Operator Name Role Phone Steven Escudero MD Unavailable Steven Escudero MD Primary Care Provider [phone] Felix Velasco APRN, [facility] Unavailable [phone] Sebastián Anthony MD Primary Care Provider [phone] Steven Escudero MD Primary Care Provider [phone] Sebastián Anthony MD Primary Care Provider [phone] Reason for Visit * Reason Comments Medication Refill Encounter Details Date Type Department Care Team (Late st Contact Info) Description 07/17/2021 Refill [facility] [address] [place] [address] Steven Escudero MD [address] [place] [address] Medication Refill Social History Tobacco Use Types [...] encounter Miscellaneous Notes * Telephone Encounter - Katy Mobley RN - 07/17/2021 1:15 PM CST Medication failed the protocol, provider to review and approve the medication order if appropriate. Requested Prescriptions Pending Prescriptions Disp Refills Ventolin HFA 108 (90 Base) MCG/ACT Aerosol Solution [Pharmacy Med Name: VENTOLIN HFA 90 MCG [id number] (90 BAS Aerosol] 36 g 2 Sig: TAKE 2 PUFFS BY INHALATION EVERY 4 HOURS NEEDED FOR WHEEZING. Short Acting Inhaled Beta-Agonists Protocol Passed - 07/17/2021 12:09 PM Passed - Visit with relevant provider in past 12 months or upcoming 90 days Recent Visits Date Type Provider Dept 06/19/21 Office Visit Steven Escudero MD [facility] 05/17/21 Office Visit Steven Escudero MD [facility] 02/21/21 Office Visit Steven Escudero MD [facility] 01/15/21 Office Visit Steven Escudero MD [facility] 11/07/20 Office Visit Celso Prado, RING SORTER, INTERNAL MEDICINE NURSE PRACTITIONER [facility] 08/27/20 Telemedicine Steven Escudero MD [facility] Showing recent visits within past 365 days and meeting all other requirements Future 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 Date Type Provider Dept 09/17/21 Appointment Steven Escudero MD [facility] Showing future appointments within next 90 days and meeting all other requirements MOTIVE SPECIALTY TECHNICIAN documented in this encounter Plan of Treatment Not on file documented as of this encounter Visit Diagnoses Not on filedocumented in this encounter Additional Health Concerns Assessment Noted Time PHQ-9 Depression Total Score: 0 05/17/20 2:00 PM CDT documented as of this encounter Care Teams Sheet Cutting Operator Relationship Specialty Start Date End Date Steven Escudero MD PCP - General Family Medicine 06/19/20 08/06/21 Sebastián Anthony MD [address] [place] [address] [place] [address] PCP - General Family Medicine 08/07/21 11/18/21 Steven Escudero MD PCP - General Family Medicine 11/19/21 04/15/22 Sebastián Anthony MD [address] [place] [address] PCP - General Internal Medicine 04/16/22 Steven Escudero MD Family Medicine 06/14/20 04/17/22 Felix Velasco, RING SORTER, INTERNAL MEDICINE NURSE PRACTITIONER [address] [place] [address] [place] [address] Internal Medicine 06/19/20 documented as of this encounter
--- OUTSIDE RECORDS SUMMARY | 2025-07-15 10:23 | XMS_ITS | Encounter Summary ---
Author Organization [facility] Address [address] [place] [address] Phone Care Team Providers Care Meat And Poultry Inspector Name Role Phone Veronika Escudero MD Unavailable Veronika Escudero MD Primary Care Provider [phone] Felix Velasco APRN, [facility] Unavailable Sebastián Anthony MD Primary Care Provider [phone] Veronika Escudero MD Primary Care Provider [phone] Sebastián Anthony MD Primary Care Provider [phone] Reason for Visit * Reason Comments Medication Refill Encounter Details Date Type Department Care Team (Late st Contact Info) Description 06/17/2021 [facility]ill [facility] [address] [place] [address] Veronika Escudero MD [address] [place] [address] Medication Refill Social History Tobacco Use Types Packs/Day Years Used Date Smoking Tobacco: Every Day Cigarettes 1 30 Smokeless Tobacco: Never Comments:used to smoke 2.5 p acks a day until ten years ago Alcohol Use Standard Drinks/Week Comments No 0 (1 standard drink = 0.6 oz pur e alcohol) PHQ-2 Answer Date Recorded Total Score - Questions 1-9 0 1008/2020 Education Answer Date Recorded What is the [...] * Question Answer Entry Date Author BP 138/84 06/19/2021 9:15 AM CDT Lora Stout Temp 98.9 06/19/2021 9:15 AM CDT Lora Stout Pulse 87 06/19/2021 9:15 AM CDT Lora Stout SpO2 98 06/19/2021 9:15 AM CDT Lora Stout documented in this encounter Miscellaneous Notes * Telephone Encounter - Brigida Lehman RN - 06/18/2021 2:25 PM CDT Patient calling to check on the status of her oxycodone refill. Advised her that refill has been pended and has been sent to provider to review. She states she is out and is hurting. Rx is pended for review. Provider aware. * Telephone Encounter - Miriam Richardson RN - 06/18/2021 2:22 PM CDT PDMP 05/17/21 Medication failed the protocol, provider to review and approve the medication order if appropriate. Requested Prescriptions Pending Prescriptions Disp Refills oxyCODONE-Acetaminophen (PERCOCET) 10-325 MG Tablet [Pharmacy Med Name: OXYCOD- ACET 10-325MG TAB 10-325 Tablet] 210 Tablet 0 Sig: TAKE ONE TABLET BY MOUTH SEVEN TIMES DAILY [facility] Not Delegated - Analgesics: Opioid Agonist Combinations Failed - 06/18/2021 2:22 PM Failed - This refill cannot be delegated Passed - Valid encounter within last 6 months Past Office Visits Recent Outpatient Visits 1 month ago Primary hypertension [facility] Family [facility] - Veronika Jones MD 3 months ago Chronic bilateral low back pain with sciatica, sciatica laterality unspecified [facility] Family Medicine Veronika Faria MD 5 months ago Chronic bilateral low back pain with sciatica, sciatica laterality unspecified [facility] Family Medicine Veronika Faria MD 7 months ago Folliculitis [facility] - Celso May APRN, BRITTANY 9 months ago Mixed hyperlipidemia [facility] - Veronika Jones MD 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 Future 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 In 3 weeks [facility] Mammography, [facility] In 3 weeks SAHCUSTECH2; [facility]HCUS[facility] Ultrasound, [facility] In 3 months Veronika Escudero MD [facility] HISTORICAL MANUSCRIPTS CURATOR - Recent and Past Visits Recent Visits Date Type Provider Dept 05/17/21 Office Visit Veronika Escudero MD [facility] 02/21/21 Office Visit Veronika Escudero MD [facility] 01/15/21 Office Visit Veronika Escudero MD [facility] 11/07/20 Office Visit Celso Prado APRN, BRITTANY [facility] 08/27/20 Telemedicine Veronika Escudero MD [facility] 06/19/20 Office Visit No Spring APRN, BRITT[facility] 05/25/20 Office Visit [facility] Showing recent visits within past 460 days with a meds authorizing provider and meeting all other requirements Future 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 No visits were found meeting these conditions. Showing future appointments within next 90 days with a meds authorizing provider and meeting all other requirements * Telephone Encounter - Leatha Russell RN - 06/18/2021 7:05 AM CDT Images from the original note were not included. Patient calling about refill on diazepam 50 mg Pharmacy verified with patient at this time Last OV 05/17/21 diazePAM Dispensed Written Strength Quantity Refills Days Supply Provider Pharmacy [email or web address] 05/23/2021 05/16/2021 5MG 120 0 30 , VERONIKA ESCUDERO MD [facility] DIAZEPAM 04/23/2021 04/12/2021 5MG 120 0 30 , VERONIKA ESCUDERO MD [facility] DIAZEPAM 03/23/2021 03/17/2021 5MG 120 0 30 , VERONIKA ESCUDERO MD [facility] DIAZEPAM 02/21/2021 02/21/2021 5MG 120 0 30 , VERONIKA ESCUDERO MD [facility] oxyCODONE-Acetaminophen Dispensed Written Strength Quantity Refills Days Supply Provider Pharmacy OXYCODONE HCL-ACETAMINOPHEN 05/17/2021 05/16/2021 10MG-325MG 210 0 30 , VERONIKA ESCUDERO MD [facility] OXYCODONE HCL-ACETAMINOPHEN 04/17/2021 04/17/2021 10MG-325MG 210 0 30 , VERONIKA ESCUDERO MD [facility] OXYCODONE HCL-ACETAMINOPHEN 03/18/2021 03/17/2021 10MG-325MG 210 0 30 , VERONIKA ESCUDERO MD * Telephone Encounter - Karen Rowan RN - 06/17/2021 5:39 PM CDT Please see MyChart Rx Renewal on 06/12/2021 documented in this encounter Plan of Treatment Not on file documented as of this encounter Visit Diagnoses Diagnosis Chronic bilateral low back pain with sciatica, sciatica laterality unspecified Chronic prescription opiate use documented in this encounter Additional Health Concerns Assessment Noted Time PHQ-9 Depression Total Score: 0 05/17/20 2:00 PM CDT documented as of this encounter Care Teams Meat And Poultry Inspector Relationship Specialty Start Date End Date Veronika Escudero MD PCP - General Family Medicine 06/19/20 08/06/21 Sebastián Anthony MD [address] [place] [address] PCP - General Family Medicine 08/07/21 11/18/21 Veronika Escudero MD PCP - General Family Medicine 11/19/21 04/15/22 Sebastián Anthony MD [address] [place] [address] PCP - General Internal Medicine 04/16/22 Veronika Escudero MD Family Medicine 06/14/20 04/17/22 Felix Velasco, MANAGER TRUST, JAVA WEB DEVELOPER [address] [place] [address] [place] [address] Internal Medicine 06/19/20 documented as of this encounter
--- OUTSIDE RECORDS SUMMARY | 2025-07-15 10:23 | XMS_ITS | Encounter Summary ---
Author Organization [facility] Address [address] [place] [address] Phone Care Team Providers Care Clam Digger Name Role Phone Steven Escudero MD Unavailable Steven Escudero MD Primary Care Provider [phone] Felix Velasco APRN, [facility] Unavailable [phone] Sebastián Anthony MD Primary Care Provider [phone] Steven Escudero MD Primary Care Provider [phone] Sebastián Anthony MD Primary Care Provider [phone] Reason for Visit * Reason Comments Medication Refill Encounter Details Date Type Department Care Team (Late st Contact Info) Description 04/01/2021 [facility]ill [facility] [address] [place] [address] Steven Escudero MD [address] [place] [address] Medication Refill Social History Tobacco Use Types [...] have Coronavirus / COVID-19? No / Unsure 03/28/2021 12:29 PM CDT documented as of this encounter Miscellaneous Notes * Telephone Encounter - Miriam Richardson RN - 04/02/2021 9:54 AM CDT PRN medication requires review from provider Per nursing clinical judgement, provider to review and approve the medication(s) order(s) if appropriate. Requested Prescriptions Pending Prescriptions Disp Refills Symbicort 160-4.5 MCG/ACT Aerosol [Pharmacy Med Name: SYMBICORT 160-4.5 MCG INH 160-4.5 Aerosol] 30.6 g 3 Sig: TAKE 2 PUFFS BY INHALATION 2 TIMES DAILY. Inhaled Combinations Protocol Passed - 04/01/2021 12:05 PM Passed - Visit with relevant provider in past 12 months or upcoming 90 days Recent Visits Date Type Provider Dept 02/21/21 Office Visit Steven Escudero MD [facility] 01/15/21 Office Visit Steven Escudero MD [facility] 11/07/20 Office Visit Celso Prado APN, LITHOGRAPHIC PHOTOGRAPHER APPRENTICE [facility] 08/27/20 Telemedicine Steven Escudero MD [facility] 06/19/20 Office Visit No Spring APN, LITHOGRAPHIC PHOTOGRAPHER APPRENTICE [facility] 05/25/20 Office Visit Steven Escudero MD [facility] Showing recent visits within past 365 days and meeting all other requirements Future 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 Date Type Provider Dept 05/17/21 Appointment Steven Escudero, MD [facility] Showing future appointments within next 90 days and meeting all other requirements Passed - Active short-acting beta agonist prescription Ventolin HFA 108 (90 Base) MCG/ACT Aerosol Solution [Pharmacy Med Name: VENTOLIN HFA 90 MCG [id number] (90 BAS Aerosol] 36 g 2 Sig: TAKE 2 PUFFS BY INHALATION EVERY 4 HOURS NEEDED FOR WHEEZING. Short Acting Inhaled Beta-Agonists Protocol Passed - 04/01/2021 12:05 PM Passed - Visit with relevant provider in past 12 months or upcoming 90 days Recent Visits Date Type Provider Dept 02/21/21 Office Visit Steven Escudero MD [facility] 01/15/21 Office Visit Steven Escudero MD [facility] 11/07/20 Office Visit Celso Prado APN, BRITTANY [facility] 08/27/20 Telemedicine Steven Escudero MD [facility] 06/19/20 Office Visit No Spring APN, [facility] 05/25/20 Office Visit Steven Escudero MD [facility] Showing recent visits within past 365 days and meeting all other requirements Future 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 Date Type Provider Dept 05/17/21 Appointment Steven Escudero MD [facility] Showing future appointments within next 90 days and meeting all other requirements fluticasone (FLONASE) 50 MCG/ACT Suspension [Pharmacy Med Name: FLUTICASONE PROP 50 MCG SPR 50 AZALEA]16 g 3 Si SPRAYS BY NASAL ROUTE DAILY. USE IN EACH NOSTRIL DIRECTED. Nasal Steroids Protocol Passed - 04/01/2021 12:05 PM Passed - Visit with relevant provider in past 12 months or upcoming 90 days Recent Visits Date Type Provider Dept 02/21/21 Office Visit Steven Escudero MD [facility] 01/15/21 Office Visit Steven Escudero MD [facility] 11/07/20 Office Visit Celso Prado APN, LITHOGRAPHIC PHOTOGRAPHER APPRENTICE [facility] 08/27/20 Telemedicine Steven Escudero MD [facility] 06/19/20 Office Visit No Spring APN, LITHOGRAPHIC PHOTOGRAPHER APPRENTICE [facility] 05/25/20 Office Visit Steven Escudero MD [facility] Showing recent visits within past 365 days and meeting all other requirements Future 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 Date Type Provider Dept 05/17/21 Appointment Steven Escudero MD [facility] Showing future appointments within next 90 days and meeting all other requirements documented in this encounter Plan of Treatment Not on file documented as of this encounter Visit Diagnoses Not on filedocumented in this encounter Additional Health Concerns Assessment Noted Time PHQ-9 Depression Total Score: 3 06/19/20 20 5:15 PM EMERGENCY GENERATOR MECHANIC documented as of this encounter Care Teams Clam Digger Relationship Specialty Start Date End Date Steven Escudero MD PCP - General Family Medicine 06/19/20 08/06/21 Sebastián Anthony MD [address] [facility] [place] [address] PCP - General Family Medicine 08/07/21 11/18/21 Steven Escudero MD PCP - General Family Medicine 11/19/21 04/15/22 Sebastián Anthony MD [address] [place] [address] PCP - General Internal Medicine 04/16/22 Steven Escudero MD Family Medicine 06/14/20 04/17/22 Felix Velasco APRN, LITHOGRAPHIC PHOTOGRAPHER APPRENTICE [address] [facility] [address] [place] [address] Internal Medicine 06/19/20 documented as of this encounter
--- OUTSIDE RECORDS SUMMARY | 2025-07-15 10:23 | XMS_ITS | Encounter Summary ---
Author Organization [facility] Address [address] [place] [address] Phone Care Team Providers Care Thaw Shed Heater Tender Name Role Phone Steven Escudero MD Unavailable Felix Velasco APRN, [facility] Unavailable [phone] Sebastián Anthony MD Primary Care Provider [phone] Steven Escudero MD Primary Care Provider [phone] Sebastián Anthony MD Primary Care Provider [phone] Reason for Visit * Reason Comments Medication Refill Encounter Details Date Type Department Care Team (Late st Contact Info) Description 11/14/2021 Refill [facility] - [place] [address] [place] [address] Steven Escudero MD [address] [place] [address] Medication Refill Social History Tobacco Use Types [...] suspected to have Coronavirus/COVID-19? No / Unsure 11/14/2021 2:11 PM CDT documented as of this encounter Functional Status documented as of this encounter Mental Status * Question Answer Entry Date Author BP 126/82 11/14/2021 2:31 PM CDT Bradley Lee Temp 98.9 11/14/2021 2:31 PM CDT Bradley Lee Pulse 90 11/14/2021 2:31 PM CDT Bradley Lee SpO2 98 11/14/2021 2:31 PM CDT Bradley Lee documented in this encounter Miscellaneous Notes * Telephone Encounter - Miriam Richardson RN - 11/14/2021 2:31 PM CDT PRN medication requires review from provider [...] Short Acting Inhaled Beta-Agonists Protocol Passed - 11/14/2021 10:16 AM Passed - Visit with relevant provider in past 12 months or upcoming 90 days Recent Visits Date Type Provider Dept 06/19/21 Office Visit Steven Escudero MD [facility] 05/17/21 Office Visit Steven Escudero MD [facility] 02/21/21 Office Visit Steven Escudero MD [facility] 01/15/21 Office Visit Steven Escudero MD [facility] [...] documented as of this encounter Care Teams Thaw Shed Heater Tender Relationship Specialty Start Date End Date Sebastián Anthony MD [address] [facility] [place] [address] PCP - General Family Medicine 08/07/21 11/18/21 Steven Escudero MD PCP - General Family Medicine 11/19/21 04/15/22 Sebastián Anthony MD [address] [place] [address] PCP - General Internal Medicine 04/16/22 Steven Escudero MD Family Medicine 06/14/20 04/17/22 Felix Velasco APRN, SUIT MAKER [address] [place] [address] [place] [address] Internal Medicine 06/19/20 documented as of this encounter
--- OUTSIDE RECORDS SUMMARY | 2025-07-15 10:23 | XMS_ITS | Encounter Summary ---
Author Organization [facility] Address [address] [place] [address] Phone Care Team Providers Care Community Coordinator Name Role Phone Steven Escudero MD Unavailable Felix Velasco APRN, [facility] Unavailable Sebastián Anthony MD Primary Care Provider [phone] Steven Escudero MD Primary Care Provider [phone] Sebastián Anthony MD Primary Care Provider [phone] Reason for Visit * Reason Comments Medication Refill Encounter Details Date Type Department Care Team (Late st Contact Info) Description 09/17/2021 Refill [facility] - Family Medicine - [place] [address] [place] [address] Steven Escudero MD [address] [place] [address] Medication Refill Social History Tobacco Use Types [...] have Coronavirus / COVID-19? No / Unsure 09/01/2021 2:39 PM BORING MACHINE SET UP OPERATOR JIG documented as of this encounter Miscellaneous Notes * Telephone Encounter - Miriam Richardson RN - 09/17/2021 4:30 PM CST PCP is Sebastián Anthony MD NG MACHINE SET UP OPERATOR JIG documented in this encounter Plan of Treatment Not on file documented as of this encounter Visit Diagnoses Diagnosis Gastroesophageal reflux disease, unspecified whether esophagitis present documented in this encounter Additional Health Concerns Assessment Noted Time PHQ-9 Depression Total Score: 0 05/17/20 21 2:00 PM CDT documented as of this encounter Care Teams Community Coordinator Relationship Specialty Start Date End Date Sebastián [place] [address] PCP - General Family Medicine 08/07/21 11/18/21 Steven Escudero MD PCP - General Family Medicine 11/19/21 04/15/22 Sebastián Anthony MD [address] [place] [id number] PCP - General Internal Medicine 04/16/22 Steven Escudero MD Family Medicine 06/14/20 04/17/22 Felix Velasco, LEAD IOS DEVELOPER, SHOP ASSISTANT [address] [place] [address] Internal Medicine 06/19/20 documented as of this encounter
--- OUTSIDE RECORDS SUMMARY | 2025-07-15 10:23 | XMS_ITS | Clinical Summary ---
Author Organization [facility] Address [address] [place] [address] Care Team Providers Care Mold Yarn Supervisor Name Role Phone Sebastián Mooney MD Primary Care Provider [phone] Allergies Active Allergy Reactions Criticality Noted Date Comments Levofloxacin Anaphylaxis High Reaction: Swelling, Penicillins Other (See comments) Reaction: Swelling, Medications aspirin 325 mg enteric coated tablet Take 1 tablet (325 mg total) by mouth daily 01/15/20 16 Active naloxone (NARCAN) 4 mg/actuation spray,non-aer osolIndicatio ns:Opioid Toxicity Administer 1 spray into affected nostril(s) as needed for opioid reversal or respiratory depression Call 911. Administer a single spray in one nostril. Repeat every 3 minutes as needed if no or minimal response. 2 each 12/25/19 22 Active senna (SENOKOT) 8.6 mg tablet Take 1 tablet by mouth 2 (two) times a day 180 tablet 3 08/20/19 23 Active EPINEPHrine 0.3 mg/0.3 mL auto-injectio n syringeIndica tions:Anaphyl axis Inject 0.3 mL (0.3 mg total) into the muscle as instructed once for 1 dose 0.3 mL 01/18/20 24 Active lovastatin (MEVACOR) 40 mg tablet TAKE 1 TABLET BY MOUTH DAILY. 90 tablet 4 10/20/19 25 Active promethazine (PHENERGAN) 25 mg tablet TAKE ONE (1) TABLET (25 MG TOTAL) BY MOUTH EVERY SIX (6) HOURS NEEDED FOR NAUSEA OR VOMITING 120 tablet 10/21/[address] (PROTONIX) 40 mg EC tablet TAKE 1 TABLET (40 MG TOTAL) BY MOUTH DAILY 90 tablet 4 11/12/19 25 026 Active buPROPion XL (WELLBUTRIN XL) 300 mg 24 hr tablet Take 1 tablet (300 mg total) by mouth every morning 90 tablet 4 12/01/19 25 026 Active Vascepa 1 gram capsule TAKE TWO (2) CAPSULES (2 G TOTAL) BY MOUTH TWO (2) (TWO) TIMES a DAY 360 capsule 3 03/17/20 25 Active carvediloL (COREG) 6.25 mg tablet TAKE ONE (1) TABLET BY MOUTH TWO (2) TIMES DAILY. 180 tablet 3 03/22/20 25 Active ibuprofen (ADVIL,MOTRIN ) 800 mg tablet TAKE 1 TABLET (800 MG TOTAL) BY MOUTH EVERY 8 (EIGHT) HOURS 180 tablet 3 04/06/20 25 Active famotidine (PEPCID) 40 mg tablet TAKE 1 TABLET (40 MG TOTAL) BY MOUTH DAILY 90 tablet 3 04/06/20 25 026 Active fluticasone propionate (FLONASE) 50 mcg/actuation nasal spray USE TWO (2) SPRAYS IN EACH NOSTRIL DAILY 16 g 3 04/07/20 25 Active risperiDONE (RisperDAL) 0.5 mg tablet TAKE 1 TABLET (0.5 MG TOTAL) BY MOUTH FOUR (4) TIMES a DAY 360 tablet 05/08/20 25 Active citalopram (CeleXA) 40 mg tablet TAKE 1 TABLET (40 MG TOTAL) BY MOUTH DAILY 90 tablet 3 05/08/20 25 026 Active amLODIPine (NORVASC) 10 mg tablet TAKE ONE (1) TABLET BY MOUTH DAILY. 90 tablet 3 05/08/20 25 Active busPIRone (BUSPAR) 30 mg tablet TAKE ONE HALF (1/2) TABLET BY MOUTH TWO (2) TIMES DAILY. 90 tablet 05/12/20 25 Active oxyCODONE-brian taminophen (PERCOCET) 10-325 mg per tablet Take 1 tablet by mouth every 4 (four) hours as needed for pain 150 tablet 06/22/20 25 Active fluticasone-u meclidin-panda nter (Trelegy Ellipta) 200-62.5-25 mcg inhaler INHALE 1 PUFF BY MOUTH EVERY DAY 60 each 1 06/23/20 25 Active albuterol HFA (PROVENTIL HFA,VENTOLIN HFA,PROAIR HFA) 90 mcg/actuation inhaler INHALE TWO (2) PUFFS EVERY FOUR (4) HOURS NEEDED FOR SHORTNESS OF BREATH OR WHEEZING 8.5 each 06/30/20 Active diazePAM (VALIUM) 5 mg tablet TAKE 1 TABLET (5 MG TOTAL) BY MOUTH EVERY 8 (EIGHT) HOURS NEEDED FOR ANXIETY 90 tablet 07/12/20 Active fluticasone-u meclidin-panda nter (Trelegy Ellipta) 200-62.5-25 mcg inhaler INHALE 1 PUFF BY MOUTH EVERY DAY 60 each 1 04/24/20 25 025 Discontinued oxyCODONE-brian taminophen (PERCOCET) 10-325 mg per tablet Take 1 tablet by mouth every 4 (four) hours as needed for pain 150 tablet 05/31/20 025 Discontinued(Re order) albuterol HFA (PROVENTIL HFA,VENTOLIN HFA,PROAIR HFA) 90 mcg/actuation inhaler INHALE TWO (2) PUFFS EVERY FOUR (4) HOURS NEEDED FOR SHORTNESS OF BREATH OR WHEEZING 8.5 each 05/31/20 25 025 Discontinued diazePAM (VALIUM) 5 mg tablet TAKE 1 TABLET (5 MG TOTAL) BY MOUTH EVERY 8 (EIGHT) HOURS NEEDED FOR ANXIETY 90 tablet 06/12/20 025 Discontinued Active Problems Problem Noted Date Diagnosed Date Chronic bilateral low back pain without sciatica 05/03/2024 Assessment & Plan (12/01/2024 4:48 PM CDT): Not well controlled, continues to have significant back pain, relief only with oxycodone Imaging demonstrated only mild arthritic disease; home exercise given to help with possible ID man syndrome Will check inflammatory markers as patient has never been worked up for regarding autoimmune arthritis Patient reports symptoms have been present since approximately 14 years ago; has been on chronic opioid therapy since then Will continue to evaluate for possible underlying causes which may help with long-term treatment options Assessment & Plan (08/31/2024 10:01 AM METAL DEALER): Not having relief, worsening symptoms and cold weather; can get relief with sitting standing or lying flat Majority of pain is in the back, radiates some to hip and shoulders Constant throbbing pain Requires repeat imaging in order to continue to evaluate diagnosis and cause of pain Assessment & Plan (05/03/2024 3:21 PM CDT): Not well controlled; continues to have significant pain; difficulty with sleeping Symptoms have been worsening with age Does not radiate, remains in bilateral low back and both hips Will continue with oxycodone 7.5 mg; will start imaging to evaluate underlying source to evaluate if there are new interventions would be appropriate Encounter for screening colonoscopy 04/20/2024 Slow transit constipation 08/20/2022 Assessment & Plan (08/20/2022 12:28 PM METAL DEALER): Roots chronic issues of constipation, worsened with chronic opioid use Patient use of MiraLax and Benefiber daily with limited relief Will start senna b.i.d. today If no improvements, may consider methyl naltrexone Esophageal dysphagia 08/19/2022 Assessment & Plan (08/19/2022 2:54 PM METAL DEALER): Symptoms occur with every meal; feels she has to drink water to for stone food Has significant heartburn and nausea Will start pantoprazole 40 mg daily; if no changes or improvement in symptoms, will refer to GI for EGD Stevenson coma scale total sco re 9-12, unspecified coma timing 07/27/2022 Leukocytosis 07/27/2022 Assessment & Plan (07/27/2022 11:01 AM METAL DEALER): Present on admission, now resolved. Likely stress induced. UA was negative for infection. XR negative for infiltrates. Checking for Flu, RSV and COVID 19. Will monitor blood cultures. Chronic nausea 06/20/2022 Assessment & Plan (06/20/2022 4:49 PM CDT): Patient has chronic nausea, may be secondary to polypharmacy; or other GI issues Will refer to Gastroenterology for further evaluation Hypertension, essential 08/07/2021 Assessment & Plan (08/31/2024 10:00 AM METAL DEALER): Stable, well controlled, blood pressure at goal; no chest pain pressure orthostatics Continue amlodipine 10 mg daily, carvedilol 6.25 mg b.i.d. Assessment & Plan (05/03/2024 3:20 PM CDT): Stable, well controlled, blood pressure goal today; no chest pain or pressure Continue carvedilol 6.25 mg b.i.d. Assessment & Plan (07/27/2022 10:57 AM METAL DEALER): Home medications Coreg and amlodipine resumed BP is well controlled at this time. Continue to monitor. Assessment & Plan (06/20/2022 4:48 PM CDT): Stable, well controlled; blood pressure at target; patient reports episodes of hypotension Usually has elevated blood pressures; reports blood pressures run to the 190 systolic at home Will continue to monitor with current medications, patient may benefit from evaluation by Cardiology if continues to have labile blood pressures Continue amlodipine 10 mg daily, carvedilol 6.25 mg b.i.d. Assessment & Plan (08/07/2021 1:22 PM METAL DEALER): Stable well controlled; blood pressure at target today Continue amlodipine 10 mg daily, carvedilol 6.25 mg b.i.d. Tobacco abuse 06/14/2020 Assessment & Plan (04/21/2023 9:43 AM CDT): Not well controlled, wants to quit due to worsening breathing; but has multiple stressors, feels that cigarettes of always been there Continue bupropion 1 2 mg b.i.d. Assessment & Plan (07/27/2022 10:58 AM METAL DEALER): Counseled to quit smoking, Has nicotine patch ordered. Chronic prescription opiate use 08/28/2019 Assessment & Plan (05/03/2024 3:18 PM CDT): Will check urine drug screen; no evidence of overuse; continue to monitor closely Abnormal mammogram of left breast 02/15/2019 Colon cancer screening 02/03/2019 Assessment & Plan (05/03/2024 3:18 PM CDT): Patient due Peripheral vascular disease 11/26/2018 Assessment & Plan (08/31/2024 10:00 AM METAL DEALER): Stable, well controlled; patient reports no claudication, has some limitations secondary to chronic back pain Will continue to monitor, encourage appropriate cholesterol control Continue lovastatin 40 mg daily, ASA 325 mg daily Assessment & Plan (05/03/2024 3:19 PM CDT): Patient reports no significant claudication at this time; would recommend continued smoking cessation Assessment & Plan (07/27/2022 10:58 AM METAL DEALER): On ASA 325 mg at home, resumed Assessment & Plan (01/09/2022 3:18 PM CDT): Stable, generally well controlled with no proof rule disease, has stents placed in legs Patient reports easy bruising on Plavix Continue Plavix 75 mg daily, follow-up with vascular surgery ACC guidelines reviewed; patient's urine lytes: Single anti-platelet therapy after initial 6 months post stent Lionel M, Cam M, Alfred M, et al. Antithrombotic Therapy for Peripheral Artery Disease. J Am Danielle Cardiol. 2018 December, 71 (19) 9118-0678. [email or web address] Assessment & Plan (08/07/2021 1:22 PM METAL DEALER): Patient has history of 2 stents in bilateral femoral arteries Continue clopidogrel 75 mg daily Sleep apnea 11/26/2018 Overview (08/07/2021): Overview: uses CPAP uses CPAP Anxiety 10/06/2018 Assessment & Plan (03/31/2025 3:16 PM CDT): Increasing anxiety levels; likely secondary to pain; currently on multiple medications, has strong support system and coping strategies Previously discontinued individual counseling Continue bupropion 300 mg daily, BuSpar 30 mg, citalopram 40 mg daily, Valium 5 mg t.i.d. Risperidone 0.5 mg daily Would recommend focusing on management of anxiety to help with chronic pain Assessment & Plan (12/01/2024 4:47 PM CDT): Stable, generally well controlled, good relief with current medications; some acute stressors especially in relation to recent left of medications Continue bupropion 300 mg daily, BuSpar 30 mg t.i.d., citalopram 40 mg daily, Valium 5 mg t.i.d., risperidone 0.5 mg daily Assessment & Plan (08/31/2024 10:00 AM METAL DEALER): Stable, generally well controlled, anxiety is decreased for patient Anxiety mostly driven by pain management, as well as individual stressors Good control over regular situations, relief now that holidays are over Continue BuSpar 30 mg, bupropion 150 mg b.i.d., Celexa 40 mg daily, risperidone 0.5 mg nightly Assessment & Plan (07/27/2022 11:00 AM METAL DEALER): Celexa and Buspar continued. Mood is stable. Assessment & Plan (08/07/2021 1:24 PM METAL DEALER): Not well controlled, patient continues to have severe anxiety Continue medications for bipolar disorder; continue BuSpar 50 mg b.i.d., diazepam 5 mg t.i.d. dosing Chronic obstructive pulmonary disease 10/06/2018 Assessment & Plan (03/31/2025 3:16 PM CDT): No significant dyspnea Continue Trelegy Ellipta 1 puff daily Assessment & Plan (12/01/2024 4:47 PM CDT): Stable, generally well controlled, symptoms vary, decreasing tobacco use to 1/2 pack per day Continues to work on regular tapering Continue Trelegy Ellipta 1 puff daily, albuterol p.r.n. for dyspnea Assessment & Plan (08/31/2024 9:59 AM METAL DEALER): Stable, good relief with breathing, continues to use inhalers Continue Trelegy Ellipta 1 puff daily, albuterol p.r.n. Assessment & Plan (05/03/2024 3:18 PM CDT): Stable, breathing is well controlled current medications Continue albuterol p.r.n., Trelegy Ellipta 1 puff daily Assessment & Plan (04/21/2023 9:44 AM CDT): Not well controlled; has been using inhaler more often Continues to use Breo Ellipta; Change to Trelegy Ellipta 1 puff daily, continue albuterol p.r.n. Assessment & Plan (07/27/2022 10:58 AM METAL DEALER): Continue home inhalers. Not in exacerbation. Assessment & Plan (06/20/2022 4:51 PM CDT): Stable, well controlled; using breathing treatments daily Continue Symbicort 1 puff b.i.d. Assessment & Plan (01/09/2022 3:20 PM CDT): Stable, generally well controlled; continue Symbicort b.i.d. Degenerative disc disease, lumbar 10/06/2018 Assessment & Plan (08/20/2022 12:27 PM METAL DEALER): Stable, continues to have significant low back pain; continue oxycodone 10 mg q.i.d. Assessment & Plan (06/20/2022 4:51 PM CDT): Continues to have significant pain, mostly located low back, shoulders and bilateral hips; pain present for the past 12 years, worsening recent pain, worse with going to bed Currently on oxycodone 10 mg t.i.d.; has performed physical therapy aquatic therapy and other multiple treatment options in the past, multiple injections through Pain Management the past Continue oxycodone 10 mg daily, will work to improve overall depression in order to improve pain management Assessment & Plan (08/07/2021 1:26 PM METAL DEALER): Not well controlled, patient reports elevated pain, impacts sleep; chronic pain located in hips shoulders and low back Patient has normal neurological function and strength in bilateral lower extremities At this time images are not available for review Will continue to monitor; given patient's history of significantly high doses of Percocet as prescribed, will continue at 2 tablets daily to prevent risk of withdrawal relapse Continue to monitor; will recommend referral to pain management if patient continues to need high doses of narcotic medications Hyperlipidemia 10/06/2018 Assessment & Plan (05/03/2024 3:19 PM CDT): LDL at goal; mildly elevated triglycerides Continue lovastatin 40 mg daily Assessment & Plan (04/21/2023 9:43 AM CDT): Last lipid panel; LDL at goal Continue lovastatin 40 mg daily; Vascepa 2 g b.i.d. Assessment & Plan (06/20/2022 4:48 PM CDT): Stable, generally well controlled Continue lovastatin 40 mg daily Assessment & Plan (08/07/2021 1:22 PM METAL DEALER): Stable, continue lovastatin 40 mg daily Patient reports he is generally irregular diet Bipolar disorder, in partial remission, most recent episode depressed 10/06/2018 Assessment & Plan (03/31/2025 3:16 PM CDT): Not well controlled; no recent depressive or manic episodes, continue bupropion, BuSpar, step alone and risperidone Assessment & Plan (12/01/2024 4:48 PM CDT): Stable, generally well controlled, mild worsening due to recent medication Continue bupropion 300 mg daily, BuSpar 30 mg, citalopram 40 mg, risperidone 0.5 mg Assessment & Plan (08/31/2024 10:00 AM METAL DEALER): Stable, well controlled; good relief of symptoms, see above medication list for anxiety Assessment & Plan (05/03/2024 3:20 PM CDT): Patient has significant depression, feeling lost lonely; no current counseling or support Would like to continue current medications with no major dose adjustments Continue bupropion 150 mg b.i.d., BuSpar 3o mg; risperidone 0.5 mg daily Assessment & Plan (04/21/2023 9:44 AM CDT): Stable, improving; patient reports depression has been improving for patient; has been trying to get motivated and become more active Continue bupropion 150 mg b.i.d., citalopram 40 mg daily, Valium 5 mg q.8 hours p.r.n., risperidone 0.5 mg nightly Assessment & Plan (07/27/2022 10:57 AM METAL DEALER): Mood is stable. Continue Risperdal and Celexa. Assessment & Plan (06/20/2022 4:50 PM CDT): Not well controlled, has been having more depression recently; recently moved housing; no current contact with grandchildren; multiple life events and dealing with chronic pain Continue risperidone 0.5 mg nightly, increase bupropion to 300 mg in the morning, 150 mg nightly continue BuSpar 15 mg b.i.d., citalopram 40 mg daily Assessment & Plan (08/07/2021 1:24 PM METAL DEALER): Stable, no recent manic episodes, mildDepression; patient reports multiple stressors including DCFS involvement With grandchildren continue bupropion 150 mg b.i.d., Celexa 40 mg daily Osteoarthrosis 10/06/2018 Overview (08/07/2021): Back and hips Assessment & Plan (08/07/2021 1:27 PM METAL DEALER): Patient reports worsening arthritis pain, mostly in hips in bilateral shoulders Physical exam Noted to have full range of motion; strength 5 of 5 in all directions of shoulders; do ability to step back walk and with normal hip flexion strength Will request images in order to review previous results Chronic back pain 07/18/2017 Assessment & Plan (03/31/2025 3:16 PM CDT): Not well controlled, worsening; imaging demonstrated some degenerative disc disease Continue oxycodone 10 mg q.8 hours PRN; Assessment & Plan (04/13/2024 4:41 PM CDT): Not well controlled; patient continues to have significant symptoms limitations due to chronic back pain Assessment & Plan (04/21/2023 9:45 AM CDT): Not well controlled; patient has multiple skin injections; skin discoloration still present from history of steroid injections Has significant pain with trying to increase activity Has been running out of medication early, can not get comfortable with she does not have medication No relief with severe pain; using ibuprofen p.r.n. Continue ibuprofen 800 mg t.i.d.; oxycodone 7.5 mg q.4 hours as needed Given extended duration of pain; may want to consider starting long-acting opioid analgesics Assessment & Plan (08/19/2022 2:53 PM METAL DEALER): Not well controlled, patient tried to transition from oxycodone to buprenorphine, however reports limited relief To sleep through night due to pain, has concerns regarding limited timing of relief, only has about 4-5 hours of relief on current medications Increase oxycodone to oxycodone 10 mg q.i.d.; if not well controlled, patient will likely benefit from referral to pain Medicine for evaluation and long acting opioids nonopioid therapies Assessment & Plan (01/09/2022 3:19 PM CDT): Patient continues to have significant pain, patient reports pain is located bilaterally in hips as well as low back Patient reports relief with Percocet 10, patient is able to tolerate and work through pain dose Patient reports previously being on significantly higher prescription Will increase to t.i.d. dosing; allowing patient to continue complete Will day as well as provide relief at night for sleep Dietary vitamin B12 deficiency anemia 06/10/2017 Polypharmacy Resolved Problems Problem Noted Date Diagnosed Date Resolved Date Acidosis, metabolic 07/27/2022 08/31/19 Assessment & Plan (07/27/2022 11:10 AM METAL DEALER): Bicarb 17, AGAP is normal. Low K noted. 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 Will check an ABG to assess pH. Acute kidney injury 09/20/2019 08/31/19 Acute encephalopathy 09/20/2019 025 Assessment & Plan (08/20/2022 12:27 PM METAL DEALER): Likely secondary to polypharmacy; Phenergan stopped Patient reports generalized improvement in mentation, back to normal baseline Patient reports multiple episodes in the past Continue to monitor and work on discontinuing medications not necessary Assessment & Plan (07/27/2022 10:57 AM METAL DEALER): Presented with AMS, likely due to polypharmacy CT head negative for acute findings. Now more awake, mentation is improving, AAOX 3. Home medications Buspar, Celexa and Risperdal resumed Will continue to hold Valium until patient is fully awake. Will follow blood cultures, and check for Flu and COVID 19 to rule out infectious causes. Acute cystitis without hematuria 09/20/2019 08/31/2024 Hypokalemia 08/31/2024 Assessment & Plan (07/27/2022 10:59 AM METAL DEALER): K 3.1 on arrival. Replacing with 40 mq KCl po. Will monitor levels. Acute renal failure with tubular necrosis 08/31/2024 Immunizations Immunization Administration Dates Next Due Influenza, Quadrivalent, Spl it, Intramuscular 05/11/2017 Influenza, Quadrivalent, Spl it, Preservative Free, Intramuscular 06/20/2022,05/17/2021,05/25/2020,08/25,10/13/2018,07/14/2016,07/14/2016 Influenza, Unspecified 05/17/2024 Zoster, unspecified 05/17/2024,05/17/2024 Surgical History Surgery Date Site/Laterality Comments US GUIDED THORACENTESIS 05/01/2016 N/A HYSTERECTOMY 08/17/1997 - 08/16/1998 OTHER SURGICAL HISTORY 2 stents in legs Medical History Medical History Date Comments Asthma Hypertension COPD (chronic obstructive pulmonary disease) Hyperlipidemia Depression Bipolar disorder Bone disease 2010 Anxiety Arthritis History of degenerative disc disease Family History Medical History Relation Name Comments Diabetes Father Hypertension Father Stroke Father Diabetes Mother Heart disease Mother Hypertension Mother Thyroid disease Mother Hypertension Sister 1 Thyroid disease Sister 1 No Known Problems Sister 2 Hypertension Sister 3 No Known Problems Sister 4 Relation Name Status Comments Father (Age 69) Mother (Age 73) Sister 1 Alive Sister 2 Alive Sister 3 Alive Sister 4 Alive Social History Tobacco Use Types Packs/Day Years Used Date Smoking Tobacco: Every Day Cigarettes Smokeless Tobacco: Never Tobacco Cessation:Ready to Q uit: Yes; Counseling Given: Yes Alcohol Use Standard Drinks/Week Comments No 0 [...] on file Legal Sex Female 4:12 AM METAL DEALER Gender Identity Not on file Sexual Orientation Not on file Obstetrics History Para Term AB IAB SAB Ectopic Multiple Livin g Live Births 2 2 2 Date Outcome GA Total Labor Labor/2nd/3rd Weight Sex Type Anes PTL [place]il[place] A1 A5 Name Clin Term Term Last Filed Vital Signs Vital Sign Reading Time Taken Comments Blood Pressure 122/82 03/30/2025 1:43 PM CDT Pulse 102 03/30/2025 1:43 PM CDT Temperature 36.7 C (98 F) 03/30/2025 1:43 PM CDT Respiratory Rate 18 03/30/2025 1:43 PM CDT Oxygen Saturation 98% 03/30/2025 1:43 PM CDT Inhaled Oxygen Concentration - - Weight 64.5 kg (142 lb 4.8 oz) 03/30/2025 1:43 P M CDT Height 162.6 cm (5' 4) 03/30/2025 1:43 PM CDT Body Mass Index 24.43 03/30/2025 1:43 PM CDT Plan of Treatment Health Maintenance Due Date Last Done Comments Colon Cancer Screening-Colonoscopy 1972 DTaP/Tdap/Td Vaccine (1 - Tdap) 1983 Regular Well Visit/Exam 18-64 1990 Pneumococcal vaccine <65 (1 of 2 - PCV) 1991 Zoster Vaccine (1 of 2) 2022 05/17/2024, 05/17 Covid-19 Vaccine (3 - 2024-2 6 season) 2025 12/27/2020, 11/29/2020 Influenza Vaccine (#1) 2025 , 06/20/2022, 05/17/2021, Additional history exists Breast Cancer Screening-Mammogram 10/25/2025 025, 02/12/2019 Depression Screening 03/30/2026 03/30/2025, 04/13/2024, 04/13/2024, Additional history exists Hepatitis C Screening Completed 09/21/2019 Hepatitis B Screening Completed 04/13/2024 Procedures Procedure Name Priority Date/Time Associated Diagnosis Comments DIAGNOSTIC MAMMOGRAM BILATERAL W KT W IMPLANTS Schedule Routine, Read Routine (OP Routine) 10/25/2024 2:13 PM CDT Abnormal mammogram HEPATITIS PANEL, ACUTE STAT 09/21/2019 11:35 AM METAL DEALER from Last 3 Months or Most Recently Relevant to Health Maintenance Results * Diagnostic Mammogram Bilateral W Kt W Implants (10/25/2024 2:13 PM CDT) Anatomical Region Laterality Modality Breast Bilateral Mammography 10/25/2024 2:39 PM CDT Impressions 10/25/2024 2:39 PM CDT 1. Left breast probably benign grouped calcifications at 9-10 o'clock are no longer evident on mammogram, evidence of a benign etiology. 2. Bilateral breast subpectoral saline implants. Right breast implant rupture, new since June 2020 (patient was already aware). Unchanged/intact left breast implant. 3. No mammographic evidence of malignancy in either breast. Screening mammogram in one year is recommended. BI-RADS: 2 - Benign. The patient was notified of these findings and recommendations with the time the examination. Electronically signed by: Chato Spence M.D. Narrative 10/25/2024 2:39 PM CDT EXAMINATION: DIAGNOSTIC MAMMOGRAM BILATERAL W KT W IMPLANTS ORDERING HEALTHCARE PROVIDER: SEBASTIÁN MOONEY HISTORY: 54-year-old female presents for follow-up of probably benign breast calcifications for annual right screening mammogram. Known right breast implant rupture, new since prior mammograms. COMPARISON: Outside mammograms dated 06/28/2020, 10/14/2019, 02/25/2019, and 02/12/2019 TECHNIQUE: CC and MLO views of the bilateral breasts were obtained with digital technique using breast tomosynthesis with C view. Computer aided detection was utilized. FINDINGS: DENSITY: The breasts are heterogeneously dense, which may obscure small masses. BREASTS: Reidentified are bilateral subpectoral saline breast implants, the presence of which limits the sensitivity of mammography. There has been interval rupture of the right implant, which correlates with the patient's provided history. The left implant appears intact and largely similar to prior mammograms. The previously identified small probably benign group of calcifications at the 9-10 o'clock position of the left breast, mid to posterior depth, is not identified on today's follow-up mammogram, evidence of a benign etiology. No suspicious masses, suspicious calcifications, or other suspicious findings are seen in either breast. There is no new suspicious finding in either breast on mammogram. us Sebastián Mooney MD IMG MAMMO PROCEDURES Nanette l Result * Hepatitis panel, acute (09/21/2019 11:35 AM METAL DEALER) Hep A IgM Negative Negative [facility] ([facility]) Comment:Testing performed by : [address] [place] [address] Hep B core IgM Negative Negative [facility]) Comment:Testing performed by : [address] [place] [address] Hep C Ab Negative Negative [facility] ([facility]) Comment:Testing performed by : [facility], [address] [place] [address]., [id number] HepBsAg Nonreactive Nonreactive [facility]) Comment:Testing performed by : [facility], [address] [place] [address]., [id number] Blood specimen (specimen) 09/21/2019 11:35 AM METAL DEALER 09/21/2019 5:53 PM METAL DEALER Michael Baer MD LAB MICROBIOLOGY - GENERAL OR DERABLES Final Result [facility] Department [place] [address] from Last 3 Months or Most Recently Relevant to Health Maintenance Insurance [facility] MEDICARE IDPA Advance Directives For more information, please contact: [phone] * Full Code (Latest Code Status on File) Date Activated Date Inactivated Comments 07/27/2022 1:40 AM 07/28/2022 3:37 PM * Full Code Date Activated Date Inactivated Comments 09/20/2019 12:40 AM 09/28/2019 7:53 PM Care Teams Mold Yarn Supervisor Relationship Specialty Start Date End Date Sebastián [place] [address] PCP - General Family Medicine 08/07/21
--- OUTSIDE RECORDS SUMMARY | 2025-07-15 10:23 | XMS_ITS | Encounter Summary ---
Author Organization [facility] Address [address] [place] [address] Phone Care Team Providers Care Family Member Caretaker Name Role Phone Steven Escudero MD Unavailable Steven Escudero MD Primary Care Provider [phone] Felix Velasco APRN, [facility] Unavailable Sebastián Anthony MD Primary Care Provider [phone] Steven Escudero MD Primary Care Provider [phone] Sebastián Anthony MD Primary Care Provider [phone] Reason for Visit * Reason Comments Medication Refill Encounter Details Date Type Department Care Team (Late st Contact Info) Description 06/21/2021 Refill [facility] [address] [place] [address] Steven Escudero MD [address] [place] [address] Medication Refill Social History Tobacco Use Types [...] encounter Miscellaneous Notes * Telephone Encounter - Radha Hudson RN - 06/21/2021 2:39 PM CDT Medication failed the protocol, provider to review and approve the medication order if appropriate.See OV notes, you said you will no longer prescribe this to her. Requested Prescriptions Pending Prescriptions Disp Refills oxyCODONE-Acetaminophen (PERCOCET) 10-325 MG Tablet [Pharmacy Med Name: OXYCOD- ACET 10-325MG TAB 10-325 Tablet] 210 Tablet 0 Sig: TAKE ONE TABLET BY MOUTH SEVEN TIMES DAILY [facility]finch Not Delegated - Analgesics: Opioid Agonist Combinations Failed - 06/21/2021 1:45 PM Failed - This refill cannot be delegated Passed - Valid encounter within last 6 months Past Office Visits Recent Outpatient Visits 2 days ago Acute cystitis without hematuria [facility] - [facility] - Steven Jones MD 1 month ago Primary hypertension [facility] - Family Medicine - Steven Jones MD 4 months ago Chronic bilateral low back pain with sciatica, sciatica laterality unspecified [facility] Family [facility] Steven Faria MD 5 months ago Chronic bilateral low back pain with sciatica, sciatica laterality unspecified [facility] Family [facility] Steven Faria MD 7 months ago Folliculitis [facility] Celso Owens APRN, HEEL STAINER 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 Future 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 In 2 weeks [facility], [facility] In 2 weeks SAHCUSTECH2; SAHCUS1 [facility] Ultrasound, [facility] In 2 months Steven Escudero MD [facility] Kev, [facility] HOE RUNNER - Recent and Past Visits Recent Visits Date Type Provider Dept 06/19/21 Office Visit Steven Escudero MD [facility] 05/17/21 Office Visit Steven Escudero MD [facility] 02/21/21 Office Visit Steven Escudero MD [facility] 01/15/21 Office Visit Steven Escudero MD [facility] 11/07/20 Office Visit Celso Prado APRN, [facility] 08/27/20 Telemedicine Steven Escudero MD [facility] 06/19/20 Office Visit No Spring APRN, HEEL STAINER [facility] 05/25/20 Office Visit Steven Escudero MD [facility] Showing recent visits within past 460 days [...] documented as of this encounter Care Teams Family Member Caretaker Relationship Specialty Start Date End Date Steven Escudero MD PCP - General Family Medicine 06/19/20 08/06/21 Sebastián Anthony MD [address] [place] [address] PCP - General Family Medicine 08/07/21 11/18/21 Steven Escudero MD PCP - General Family Medicine 11/19/21 04/15/22 Sebastián Anthony MD [address] [place] [address] PCP - General Internal Medicine 04/16/22 Steven Escudero MD Family Medicine 06/14/20 04/17/22 Felix Velasco, MARBLE CUTTER, HEEL STAINER [address] [place] [address] [place] [address] Internal Medicine 06/19/20 documented as of this encounter
--- OUTSIDE RECORDS SUMMARY | 2025-07-15 10:23 | XMS_ITS | Encounter Summary ---
Author Organization [facility] Address [address] [place] [address] Phone Care Team Providers Care Microbiology Laboratory Manager Name Role Phone Steven Escudero MD Unavailable Steven Escudero MD Primary Care Provider [phone] Felix Velasco APRN, [facility] Unavailable [phone] Sebastián Anthony MD Primary Care Provider [phone] Steven Escudero MD Primary Care Provider [phone] Sebastián Anthony MD Primary Care Provider [phone] Reason for Visit * Reason Comments Medication Refill Encounter Details Date Type Department Care Team (Late st Contact Info) Description 04/30/2021 Refill [facility] [address] [place] [address] Steven Escudero MD [address] [place] [address] Medication Refill Social History Tobacco Use Types [...] Telephone Encounter - Danita Mena RN - 05/01/2021 4:16 PM CDT Medication failed the protocol, provider to review and approve the medication order if appropriate. Requested Prescriptions Pending Prescriptions Disp Refills risperiDONE (RISPERDAL) 0.5 MG Tablet [Pharmacy Med Name: RISPERIDONE 0.5 MG TABS 0.5 Tablet] 360 Tablet 1 Sig: TAKE ONE TABLET BY MOUTH 4 TIMES DAILY. [facility] Not Delegated - Psychiatry: Antipsychotics - Second Generation (Atypical) Failed - 05/01/2021 4:16 PM Failed - This refill cannot be delegated Failed - HBA1C in normal range and within 360 days No results found for: HGBA1C, GLYCO1 Passed - Valid encounter within last 6 months Past Office Visits Recent Outpatient Visits 2 months ago Chronic bilateral low back pain with sciatica, sciatica laterality unspecified [facility] - [facility] - Steven Jones MD 3 months ago Chronic bilateral low back pain with sciatica, sciatica laterality unspecified [facility] - Family Medicine - Steven Jones MD 5 months ago Folliculitis [facility] - Family Medicine - Celso May APN, CREOSOTING ENGINEER 8 months ago Mixed hyperlipidemia [facility] Family [facility] - Steven Jones MD 10 months ago Gastroesophageal reflux disease, unspecified whether esophagitis present [facility] No Spring APN, CREOSOTING ENGINEER 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 Future 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 In 2 weeks Steven Escudero MD [facility]AM SERVICE INSPECTOR - Recent and Past Visits Recent Visits Date Type Provider Dept 02/21/21 Office Visit Steven Escudero MD [facility] 01/15/21 Office Visit Steven Escudero MD [facility] 11/07/20 Office Visit Celso Prado APN, CREOSOTING ENGINEER [facility] 08/27/20 Telemedicine Steven Escudero MD [facility] 06/19/20 Office Visit No Spring APN, CREOSOTING ENGINEER [facility] 05/25/20 Office Visit [facility] Showing recent visits within past 460 days with a meds authorizing provider and meeting all other requirements Future 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 Date Type Provider Dept 05/17/21 Appointment Steven Escudero MD [facility] Showing future appointments within next 90 days with a meds authorizing provider and meeting all other requirements Passed - Last BP in normal range BP Readings from Last 1 Encounters: 02/21/21 118/62 Passed - WBC in normal range and within 360 days WBC Date Value Ref Range Status 02/21/2021 9.86 4.00 - 12.00 10(3)/mcL Final documented in this encounter Plan of Treatment Not on file documented as of this encounter Visit Diagnoses Not on filedocumented in this encounter Additional Health Concerns Assessment Noted Time PHQ-9 Depression Total Score: 3 06/19/20 20 5:15 PM NATURAL RESOURCE ECONOMIST documented as of this encounter Care Teams Microbiology Laboratory Manager Relationship Specialty Start Date End Date Steven Escudero MD PCP - General Family Medicine 06/19/20 08/06/21 Sebastián [place] [address] PCP - General Family Medicine 08/07/21 11/18/21 Steven Escudero MD PCP - General Family Medicine 11/19/21 04/15/22 Sebastián Anthony MD [address] [place] [address] PCP - General Internal Medicine 04/16/22 Steven Escudero MD Family Medicine 06/14/20 04/17/22 Felix Velasco, SPREADER, CREOSOTING ENGINEER [address] [place] [address] Internal Medicine 06/19/20 documented as of this encounter
--- OUTSIDE RECORDS SUMMARY | 2025-07-15 10:23 | XMS_ITS | Encounter Summary ---
Author Organization [facility] Address [address] [place] [address] Phone Care Team Providers Care Timber Repairer Name Role Phone Steven Escudero MD Unavailable Steven Escudero MD Primary Care Provider [phone] Felix Velasco APRN, [facility] Unavailable Sebastián Anthony MD Primary Care Provider [phone] Steven Escudero MD Primary Care Provider [phone] Sebastián Anthony MD Primary Care Provider [phone] Reason for Visit * Reason Comments Medication Refill Encounter Details Date Type Department Care Team (Late st Contact Info) Description 04/12/2021 Refill [facility] - [facility] [address] [place] [address] Steven Escudero MD [address] [place] [address] Medication Refill Social History Tobacco Use Types [...] encounter Miscellaneous Notes * Telephone Encounter - Elena Raygoza RN - 04/12/2021 3:42 PM CDT Medication failed the protocol, provider to review and approve the medication order if appropriate. Requested Prescriptions Pending Prescriptions Disp Refills diazePAM (VALIUM) 5 MG Tablet [Pharmacy Med Name: DIAZEPAM 5 MG TABS 5 Tablet] 120 Tablet 0 Sig: Take 1 Tablet by mouth every 6 hours as needed for Anxiety or Muscle spasms. There is no refill protocol information for this order documented in this encounter Plan of Treatment Not on file documented as of this encounter Visit Diagnoses Diagnosis Chronic bilateral low back pain with sciatica, sciatica laterality unspecified documented in this encounter Additional Health Concerns Assessment Noted Time PHQ-9 Depression Total Score: 3 06/19/20 20 5:15 PM CURATOR HERBARIUM documented as of this encounter Care Teams Timber Repairer Relationship Specialty Start Date End Date Steven Escudero MD PCP - General Family Medicine 06/19/20 08/06/21 Sebastián Anthony MD [address] [place] [address] PCP - General Family Medicine 08/07/21 11/18/21 Steven Escudero MD PCP - General Family Medicine 11/19/21 04/15/22 Sebastián Anthony MD [address] [place] [address] PCP - General Internal Medicine 04/16/22 Steven Escudero MD Family Medicine 06/14/20 04/17/22 Felix Velasco, ROB, SUPERVISOR PAINTING SHIPYARD [address] [place] [address] [place] [address] Internal Medicine 06/19/20 documented as of this encounter
--- OUTSIDE RECORDS SUMMARY | 2025-07-15 10:23 | XMS_ITS | Encounter Summary ---
Author Organization [facility] Address [address] [place] [address] Phone Care Team Providers Care Field Supervisor Name Role Phone Steven Escudero MD Unavailable Steven Escudero MD Primary Care Provider [phone] Felix Velasco APRN, [facility] Unavailable [phone] Sebastián Anthony MD Primary Care Provider [phone] Steven Escudero MD Primary Care Provider Sebastián Anthony MD Primary Care Provider [phone] Reason for Visit * Reason Onset Date Comments Labs Only 04/04/2021 Encounter Details Date Type Department Care Team (Late st Contact Info) Description 04/04/2021 Telephone [facility] [address] [place] [address] Steven Escudero MD [address] [place] [address] Labs Only Social History Tobacco Use Types Packs/Day Years [...] encounter Miscellaneous Notes * Telephone Encounter - Doris Rowan RN - 04/04/2021 1:08 PM CDT Caller would like to know are you going to order any labs for her today or tomorrow? Pt states she had received a text you were going to order another lab. documented in this encounter Plan of Treatment Scheduled Orders Name Type Priority Associated Diagnoses Orde r Schedule CMP (COMPREHENSIVE METABOLIC PANEL) Lab Routine Acute renal failure with tubular necrosis (HCC) Expected: 07/05/2021, Expires: 04/04/2022 documented as of this encounter Visit Diagnoses Diagnosis Acute renal failure with tubular necrosis- Primary Acute kidney failure with lesion of tubular necrosis documented in this encounter Additional Health Concerns Assessment Noted Time PHQ-9 Depression Total Score: 3 06/19/20 20 5:15 PM CLINICAL REHABILITATION LIAISON documented as of this encounter Care Teams Field Supervisor Relationship Specialty Start Date End Date Steven Escudero MD PCP - General Family Medicine 06/19/20 08/06/21 Sebastián Anthony MD [address] [place] [address] PCP - General Family Medicine 08/07/21 11/18/21 Steven Escudero MD PCP - General Family Medicine 11/19/21 04/15/22 Sebastián Anthony MD [address] [place] [address] PCP - General Internal Medicine 04/16/22 Steven Escudero MD Family Medicine 06/14/20 04/17/22 Felix Velasco, DIRECTOR DIETETICS DEPARTMENT, IT RISK AND ASSURANCE SENIOR MANAGER [address] [place] [address] [place] [address] Internal Medicine 06/19/20 documented as of this encounter
[2025-07-15 10:33] VITALS: BP 97/44; PULSE 117; RESP 20; TEMP 36.1; O2SAT 87
--- NOTE | 2025-07-15 10:40 | ED_ITS ---
HPI - SOB/Dyspnea General Chief Complaint: Shortness of Breath/Dyspnea Stated Complaint: Can't breathe and rib pain Time Seen by Provider: 07/15/25 10:30 Source: patient and RN notes reviewed Mode of arrival: ambulatory Limitations: no limitations History of Present Illness HPI Narrative: 55-year-old female patient presents Express Care complaining of chest pain shortness of breath that started approximately 3 days ago. Patient reports the pain on the right side of her chest, she reports as sharp and stabbing pain. Patient also feels like she cannot catch her breath. Patient has a history of high cholesterol, hypertension, blood clots, chronic kidney disease. Patient is a current smoker. Patient denies any significant cardiac history. Patient has any fevers, eczema chills, nausea, vomiting, diarrhea, upper respiratory symptoms or any other symptoms. Patient states she does have a cough and feels weak. Related Data Home Medications ?Medication ?Instructions ?Recorded ?Confirmed ?Last Taken ?Type Unable to Obtain Home Medications 07/1507/15/25 Unknown History Allergies Allergy/AdvReac Type Severity Reaction Status Date / Time levofloxacin (From Levaquin) Allergy Intermediate Swelling Verified 07/15/25 10:35 penicillin G Allergy Intermediate Swelling Verified 07/15/25 10:35 Review of Systems Review of Systems: CONSTITUTIONAL: Denies fever, chills, or sweats. EYES: Denies visual changes, redness, or discharge. ENT: Denies rhinorrhea, congestion, sore throat, or otalgia. CARDIOVASCULAR: Positive for chest pain. Negative for dizziness, lightheadedness, orthopnea, Palpitations, or edema. RESPIRATORY: Positive for cough and dyspnea. GASTROINTESTINAL: Denies abdominal pain, nausea, vomiting, or diarrhea. GENITOURINARY: Denies dysuria or hematuria. SKIN: Denies rash or itching. MUSCULOSKELETAL: Denies back pain, joint pain, or myalgia. NEUROLOGIC: Denies headache, numbness, or weakness. PSYCHIATRIC: Denies anxiety or depression. All other systems reviewed are negative, except as documented in HPI. PMFSH Comments At the time of my signature, I reviewed and agree with the nursing past medical, surgical, social, and family history. There is no relevant family history pertinent to the patient complaint. Exam Narrative: GENERAL: This is a well-nourished, well-developed adult, in no apparent distress. They are ill-appearing, nontoxic appearing. HEAD: normocephalic, atraumatic. EYES: Sclera clear/white. Conjunctiva normal. Vision is grossly intact. Extraocular movements intact EARS: External ears normal, Hearing grossly intact. NOSE: External nose normal THROAT: Mucous membranes moist, NECK: Neck supple, non-tender without lymphadenopathy, masses or thyromegaly. CARDIOVASCULAR: Tachycardic rate and rhythm without murmurs, gallops, or rubs. RESPIRATORY: Diminished. Breath sounds equal bilaterally. No wheezes, rales, or rhonchi. GASTROINTESTINAL: Abdomen soft, non-tender, nondistended. SKIN: warm, Dry, intact with no suspicious lesions or rash, good texture and turgor. NEURO: awake, alert, and oriented to person, place and time. There were no obvious focal neurologic abnormalities. EXTREMITIES: No joint tenderness, effusion, or edema noted. BACK: Nontender without deformity. Course Course Emergency Course: Portions of this record may have been created with voice recognition software Level of Care: Express Care Visit Vital Signs Vital signs: Vital Signs Temperature 96.9 F L 07/15/25 10:33 Pulse Rate 117 H 07/15/25 10:33 Respiratory Rate 20 07/15/25 10:33 Blood Pressure 97/44 L 07/15/25 10:33 Pulse Oximetry 87 L 07/15/25 10:33 Oxygen Delivery Room Air 07/15/25 10:33 Temperature 96.9 F L 07/15/25 10:33 Pulse Rate 117 H 07/15/25 10:33 Respiratory Rate 20 07/15/25 10:33 Blood Pressure 97/44 L 07/15/25 10:33 Pulse Oximetry 87 L 07/15/25 10:33 Oxygen Delivery Room Air 07/15/25 10:33 Reviewed Transfer Transfered to: [facility] Transportation: ALS Transfer rationale: Hypoxia, chest pain or shortness of breath, patient requiring higher level care, low blood pressure Accepting physician: Dr. Crowley MDM - SOB/Dyspnea MDM Narrative Medical decision making narrative: Patient hypoxic upon triage, patient placed on 2 L of oxygen via nasal cannula with improvement oxygenation. EKG sinus rhythm without ST elevation or depression. Given patient's symptoms, it is recommend the patient seek a higher level care and proceed immediately to the emergency department. Patient is agreeable to go to [facility] ER. Called over to [facility] ER spoke to Cindy Yi who is aware this patient and Dr. Crowley accepted the patient for transfer. Patient agreed to go to hospital via ALS ambulance. Patient advised to remain NPO proceed immediately to the ER. Differential Diagnosis Differential diagnosis: Likely acute exacerbation of chronic obstructive airways disease, congestive heart failure, community acquired pneumonia, pulmonary embolism and other (Acute coronary syndrome, sepsis) ECG Data EKG #1: Attestation: I personally reviewed and interpreted this ECG as follows: ECG completion date: 07/15/25 ECG completion time: 10:30 Prior ECG tracings: not available for review Interpretation: Abnormal EKG Interpretation: normal rate, sinus rhythm, no ectopy, no ST changes, normal QRS, normal QT and NL axis Critical Care Time Critical Care Time Critical Care Time: No Discharge Plan Discharge Clinical Impression: Chest pain, Shortness of breath, Hypoxia Patient Disposition: Acute Care Hospital Condition: Stable Patient Language: Thai Prescriptions: No Action Unable to Obtain Home Medications Follow-up/Referrals: Raj,MD Sebastián [Primary Care Provider, Unknown] Time of Disposition: 10:50
--- NOTE | 2025-07-15 10:42 | PC.NURSE ---
pt arrived to urgent care and was 87% on room air in triage, brought to room 1 and placed on bedside O2 at 2L, 92% on 2L NC. BP low Santiago ASSISTANT FRONT END MANAGER aware and at bedside. BP 94/44 in triage, pt diaphoretic.
== END 2025-07-15 10:52 | disposition short-term general hospital (02) ==
PROVIDERS: PCP Hospitalist
DX: R07.9 Chest pain, unspecified (principal); R06.02 Shortness of breath; R09.02 Hypoxemia; I10 Essential (primary) hypertension; E78.00 Pure hypercholesterolemia, unspecified; J44.9 Chronic obstructive pulmonary disease, unspecified; Z86.718 Personal history of other venous thrombosis and embolism
CPT/HCPCS: 93005; 99215; G0463